=== PATIENT | male | born 1950 | race Caucasian/White ===

== ENCOUNTER 2018-07-16 11:47 | Inpatient (IN) | payer MEDICARE, OTHER ==
[2018-07-16] VITALS (11 sets, daily range): BP systolic 84–108; BP diastolic 48–60
[~2018-07-16] VITALS: Ht 177.8 cm; Wt 111.7 kg
[2018-07-16] MEDS ORDERED: PIP/TAZO PER PHARMACY MC PRN (14:15)
[2018-07-16] MEDS: VANCOMYCIN PER PHARMACY MC PRN (14:58)
--- NOTE | 2018-07-16 16:07 | RAD ---
CT HEAD WO CONTRAST Date: 07/16/2018 2:02 PM Clinical Indication: AMS Comparison: None. Technique: 5 mm axial tomographic images were obtained of the head without contrast. These were viewed on brain and bone windows. Findings: Mild generalized cerebral and cerebellar volume loss. Moderate nonspecific periventricular hypoattenuation, most commonly seen with chronic small vessel ischemic disease. No intra- or extra-axial mass or fluid collection. No acute hemorrhage. The ventricles are normal in size, shape, and morphology. The gonzalez-white matter junction is normal. The basilar cisterns are patent. Fat stranding/skin thickening in the right parietal scalp. The visualized paranasal sinuses are normal. The visualized portions of the orbits and globes are normal. The mastoid air cells are clear. No aggressive osseous lesion or fracture. Impression: 1. No acute intracranial process. 2. Mild cerebral volume loss. Moderate chronic small vessel ischemic disease. 3. Fat stranding/skin thickening in the right parietal scalp. Correlate with physical exam. Findings could relate to small hematoma if patient has recent injury. PQRS Compliance Statement: One or more of the following individualized dose reduction techniques were utilized for this examination: 1. Automated exposure control 2. Adjustment of the mA and/or kV according to patient size 3. Use of iterative reconstruction technique Electronically signed by: Brad Sumner MD (07/16/2018 4:03 PM) [facility]
[2018-07-16] MEDS ORDERED: METO25TA4 PO (16:09)
[2018-07-16] MEDS ORDERED: OMEG10005 PO (16:09)
[2018-07-16] MEDS ORDERED: OMEG1CAP6 PO (16:09)
[2018-07-16] MEDS ORDERED: INSU100I17 SQ (16:09)
[2018-07-16] MEDS ORDERED: DIGO125T PO (16:09)
[2018-07-16] MEDS ORDERED: AMIO200T4 PO (16:09)
[2018-07-16] MEDS ORDERED: APIX5TAB PO (16:09)
[2018-07-16] MEDS ORDERED: ACET650S PO (16:09)
[2018-07-16] MEDS ORDERED: TRAM50TA PO (16:09)
[2018-07-16] MEDS ORDERED: DOXA4TAB3 PO (16:09)
[2018-07-16] MEDS ORDERED: FINA5TAB4 PO (16:09)
[2018-07-16] MEDS ORDERED: NYST100054 PO (16:09)
[2018-07-16] MEDS ORDERED: MULT9LIQ7 PO (16:09)
[2018-07-16] MEDS ORDERED: FERR220S8 PO (16:09)
[2018-07-16] MEDS ORDERED: TRAZ-85 PO (16:09)
[2018-07-16] MEDS ORDERED: LACT1CAP35 PO (16:09)
[2018-07-16] MEDS ORDERED: POLY255P PO (16:09)
[2018-07-16] MEDS ORDERED: MELA3TAB2 PO (16:09)
[2018-07-16] MEDS ORDERED: INSU100I13 SQ (16:09)
[2018-07-16] MEDS ORDERED: ATOR20TA58 PO (16:09)
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
[2018-07-16] MEDS ORDERED: ALBUTEROL SULFATE 2.5 MG/3 ML NEBU. NEB PRN (17:45)
[2018-07-16] MEDS ORDERED: NON FORMULARY ITEM (Melatonin 6 MG) PO SCH (18:15)
[2018-07-16] MEDS ORDERED: ACETAMINOPHEN 650 MG/20.3 ML SOLUTION. PO PRN (18:15)
[2018-07-16] MEDS: PIPERACILLIN/TAZOBACTAM 4.5 GM in IV NORMAL SALINE 100ML 100 ML IV SCH ×2 (18:38→23:25)
[2018-07-16] MEDS: DOXAZOSIN MESYLATE 4 MG TABLET. PO SCH (19:00)
[2018-07-16] MEDS: IPRATRPIUM/ALBUTEROL 0.5/2.5MG 3 ML NEBU. NEB SCH (20:04)
--- NOTE | 2018-07-16 20:54 | PDOC2 ---
CONSULT Date of Consult Date of Consult DATE: 07/16/18 TIME: 20:53 Reason for Consult Reason for Consult: respiratory distress History of Present Illness Reason for Visit: Patient is 69-year-old man who presented from outside facility with the altered mental status with the respiratory distress. Patient is currently being evaluated by pulmonology. Patient was presented from his facility to the emergency room with complaint of breathing problems. Patient is getting CT scan of the chest and brain Current Medications Current Medications Current Medications Vancomycin HCl (Vanco Per Pharmacy) 1 each PRN DAILY PRN MC SEE COMMENTS Last administered on 07/16/18at 14:58; Start 07/16/18 at 14:15 Piperacillin Sod/ Tazobactam Sod (Zosyn Per Pharmacy) 1 each PRN DAILY PRN MC SEE COMMENTS; Start 07/16/18 at 14:15 Piperacillin Sod/ Tazobactam Sod 4.5 gm/Sodium Chloride 100 ml @ 200 mls/hr Q6HRS IV Last administered on 07/16/18at 18:38; Start 07/16/18 at 18:00 Vancomycin HCl 2 gm/Sodium Chloride 500 ml @ 250 mls/hr Q18H IV ; Start at 06:00 Vancomycin HCl (Vancomycin Trough Level) 1 each 1X ONCE MC ; Start 07/18/18 at 23:30; Stop 07/18/18 at 23:31 Albuterol/ Ipratropium (Duoneb) 3 ml RTQID NEB Last administered on 07/16/18at 20:04; Start 07/16/18 at 20:00 Albuterol Sulfate (Ventolin Neb Soln) 2.5 mg PRN Q4HRS PRN NEB SHORTNESS OF BREATH; Start 07/16/18 at 17:45 Acetaminophen (Tylenol) 650 mg PRN Q6HRS PRN PO MILD PAIN / TEMP; Start at 18:15 Amiodarone HCl (Cordarone) 400 mg BID PO ; Start 07/16/18 at 21:00 Apixaban (Eliquis) 5 mg BID PO ; Start 07/16/18 at 21:00 Atorvastatin Calcium (Lipitor) 20 mg HS PO ; Start 07/16/18 at 21:00 Doxazosin Mesylate (Cardura) 4 mg DAILY PO ; Start 07/16/18 at 19:00 Finasteride (Proscar) 5 mg QHS PO ; Start 07/16/18 at 21:00 Insulin Glargine (Lantus) 40 units QHS SQ ; Start 07/16/18 at 21:00 Metoprolol Tartrate (Lopressor) 25 mg BID PO ; Start 07/16/18 at 21:00 Polyethylene Glycol (miraLAX PACKET) 34 gm BID PO ; Start 07/16/18 at 21:00 Trazodone HCl (Desyrel) 50 mg HS PO ; Start 07/16/18 at 21:00 Ferrous Sulfate (Iron Oral Solution) 300 mg DAILY PO ; Start 07/16/18 at 19:00 Insulin Human Lispro (HumaLOG) 20 units TID@0800,1400,2000 SQ ; Start 07/16/18 at 20:00 Lactobacillus Rhamnosus (Culturelle) 1 cap BID PO ; Start 07/16/18 at 21:00 Non-Formulary Medication (Melatonin ) 6 mg PRN QHS PO ; Start 07/16/18 at 18: 15; Status UNV Multivitamins (Thera-Plus Oral Liquid) 5 ml DAILY PO ; Start 07/16/18 at 19:00 Nystatin (Nystatin Oral Susp) 5 ml [id number] SWSW ; Start 07/16/18 at 21:00 Active Scripts Active Reported Digoxin 125 Mcg Tablet 125 Mcg PO QHS Ultra Nancy Plus Capsule (Lactobac/Bifidobac/Glob Pr Con) 1 Each Capsule 1 Each PO BID Eliquis (Apixaban) 5 Mg Tablet 5 Mg PO BID Atorvastatin Calcium 20 Mg Tablet 20 Mg PO HS Tramadol Hcl 50 Mg Tablet 50 Mg PO Q6HRS PRN Lugoff-3 (Lugoff-3 Fatty Acids) 1,000 Mg Capsule 2,000 Mg PO Amiodarone Hcl 200 Mg Tablet 400 Mg PO BID Acetaminophen Oral Liquid (Acetaminophen) 650 Mg/20.3 Ml Solution 650 Mg PO PRN Q6HRS Ferrous Sulfate 220 Mg/5 Ml Elixir 5 Ml PO DAILY Melatonin 3 Mg Tablet 6 Mg PO PRN QHS Metoprolol Tartrate 25 Mg Tablet 25 Mg PO BID Doxazosin Mesylate 4 Mg Tablet 4 Mg PO DAILY Novolog Flexpen (Insulin Aspart) 100 Unit/1 Ml Insuln.pen 20 Unit SQ TID@0800, 1400,2000 Lantus Solostar (Insulin Glargine,Hum.rec.anlog) 100 Unit/1 Ml Insuln.pen 40 Unit SQ QHS Nystatin 100,000 Unit/1 Ml Oral.susp 5 Ml PO QID Finasteride 5 Mg Tablet 5 Mg PO QHS Trazodone Hcl 50 Mg Tablet 50 Mg PO HS Polyethylene Glycol 3350 255 Gm Powder 34 Gm PO BID Certa Jordan Liquid (Multivits W-Min/Ferrous Gluc) 9 Mg/15 Ml Liquid 9 Mg PO DAILY Allergies Allergies: Coded Allergies: metformin (Verified Allergy, Intermediate, 07/16/18) pioglitazone (Verified Allergy, Intermediate, 07/16/18) Physical Exam Physical Exam PHYSICAL EXAMINATION: General: Intubated. HEENT: Normal cephalic and non traumatic. Neck: No lymphadenopathy. No resistance. Cardiac: S1, S2, regular rate and rhythm. Pulmonary: On vent. Abdomen: Bowel sounds are normal. NEUROLOGICAL EXAMINATION: On vent. Unresponsiveness. Pupils 1 mm, decreased reaction to light stimuli. EOMI not elicited. CN: No acute findings. Neck: No resistance Muscle Tone: decreased. Muscle Strength: minimal movements noted to stimuli DTR: 0-1 Sensory: Minimal response to pain stimuli. Plantar Reflex: mute Cerebellar Signs: Not able to access. Gait: Not able. Vitals VITALS Vital Signs Date Time Temp Pulse Resp B/P (MAP) Pulse Ox O2 Delivery O2 Flow Rate FiO2 07/16/18 20:05 95 BiPAP/CPAP 07/16/18 20:00 98.4 64 24 102/60 (74) 98.4 Assessment/Plan Assessment/Plan Patient is 69-year-old man who presented from outside facility with the altered mental status with the respiratory distress. Patient is currently being evaluated by pulmonology. Patient was presented from his facility to the emergency room with complaint of breathing problems. Patient is getting CT scan of the chest. Patient had a CT scan brain showing mild cerebral volume loss with no acute intracranial process. Changes noted for small vessel ischemic disease. Further images MRI of brain can be done to further evaluate for any acute intracranial etiology when medically stable. Continue medical management. Obtain previous records VASQUEZ SMITH MD Jul 16, 2018 20:54
[2018-07-16] MEDS: METOPROLOL TART IMMED RELEASE 25 MG TABLET. PO SCH (21:00)
--- NOTE | 2018-07-16 21:09 | RAD ---
AP portable chest 07/16/2018. Reason for exam: PICC line placement. A PICC line enters the right upper extremity. Its tip extends to the mid to lower SVC level. There are bilateral infiltrates, right worse than left. No large effusion is seen. Heart size is normal. IMPRESSION: Placement of PICC line as described above. Electronically signed by: J Carlos Wilson Jr., MD (07/16/2018 9:05 PM) [facility]
[2018-07-16] MEDS: FERROUS SULFATE ORAL 300 MG/5 ML SOLUTION. PO SCH (21:23)
[2018-07-16] MEDS: NYSTATIN 100,000 UNITS/ML 5 ML ORAL.SUSP. SWSW SCH (21:23)
[2018-07-16] MEDS: MULTIVITAMINS,THERAPEUTIC 5 ML ORAL LIQUID. PO SCH (21:23)
[2018-07-16] MEDS: POLYETHYLENE GLYCOL 3350 17 GM PACKET. PO SCH (21:24)
[2018-07-16] MEDS: AMIODARONE HCL 200 MG TABLET. PO SCH (21:24)
[2018-07-16] MEDS: LACTOBACILLUS RHAMNOSUS GG 1 CAPSULE. PO SCH (21:24)
[2018-07-16] MEDS: traZODone 50 MG TABLET. PO SCH (21:24)
[2018-07-16] MEDS: APIXABAN 5 MG TABLET. PO SCH (21:24)
[2018-07-16] MEDS: ATORVASTATIN CALCIUM 20 MG TABLET PO SCH (21:24)
[2018-07-16] MEDS: FINASTERIDE 5 MG TABLET. PO SCH (21:25)
[2018-07-16] MEDS: INSULIN GLARGINE 300 UNITS/3 ML INSULN.PEN. SQ SCH (21:26)
[2018-07-16] MEDS: INSULIN LISPRO 300 UNITS/3 ML INSULN.PEN. SQ SCH (21:27)
[2018-07-17] VITALS (24 sets, daily range): BP systolic 79–114; BP diastolic 36–58
[2018-07-17 03:11] LABS: BASO % 0 % (0-3); EOS % 0 % (0-3); HEMATOCRIT 24.3 % (39.0-53.0); LYMPH # 0.5 x10^3/uL (1.0-4.8); LYMPH % 7 % (24-48); MEAN CORPUSCULAR HEMOGLOBIN 28 pg (25-35); MEAN CORPUSCULAR HGB CONC 33 g/dL (31-37); MEAN CORPUSCULAR VOLUME 85 fL (79-100); MONO # 0.4 x10^3/uL (0.0-1.1); MONO % 5 % (0-9); NEUT # 6.8 x10^3uL (1.8-7.7); NEUT % 89 % (31-73); PLATELET COUNT 108 x10^3/uL (140-400); RED BLOOD COUNT 2.87 x10^6/uL (4.30-5.70); RED CELL DISTRIBUTION WIDTH 21.8 % (11.5-14.5); WHITE BLOOD COUNT 7.7 x10^3/uL (4.0-11.0)
[2018-07-17 03:28] LABS: ALBUMIN 2.2 g/dL (3.4-5.0); ALBUMIN/GLOBULIN RATIO 0.7 (1.0-1.7); CALCIUM 8.2 mg/dL (8.5-10.1); CREATININE 1.3 mg/dL (0.7-1.3); GFR 55.1; POTASSIUM 5.1 mmol/L (3.5-5.1); TOTAL BILIRUBIN 0.5 mg/dL (0.2-1.0); TOTAL PROTEIN 5.5 g/dL (6.4-8.2)
[2018-07-17 03:48] LABS: % BANDS 2 % (0-9); % LYMPHS 5 % (24-48); % MONOS 3 % (0-10); % SEGS 90 % (35-66)
[2018-07-17 03:49] LABS: ANISOCYTOSIS MOD; PLT ESTIMATE DECREASED (ADEQUATE); POLYCHROMASIA SLIGHT; TOXIC GRANULATION MOD
[2018-07-17] MEDS: PIPERACILLIN/TAZOBACTAM 4.5 GM in IV NORMAL SALINE 100ML 100 ML IV SCH ×4 (05:49→23:26)
[2018-07-17] MEDS: VANCOMYCIN 2 GM in IV NORMAL SALINE 500ML BAG 500 ML IV SCH (05:50)
[2018-07-17] MEDS: IPRATRPIUM/ALBUTEROL 0.5/2.5MG 3 ML NEBU. NEB SCH ×4 (07:19→19:33)
[2018-07-17 07:35] LABS: BASE EXCESS ABG -1 mmol/L (-3-3); HCO3 ABG 24 mmol/L (21-28); PCO2 ABG 42 mmHg (35-46); PO2 ABG 71 mmHg (65-108); SAT O2 ABG 94 % (92-99)
[2018-07-17 07:36] LABS: FIO2 ABG 40
--- NOTE | 2018-07-17 08:26 | PDOC ---
Infectious Disease Note Vital Sign Vital Signs Vital Signs Date Time Temp Pulse Resp B/P (MAP) Pulse Ox O2 Delivery O2 Flow Rate FiO2 07/17/18 08:00 Bi-pap 07/17/18 08:00 97.9 64 18 79/36 (50) 100 97.9 Labs Lab Laboratory Tests Test 07/16/18 21:22 07/17/18 02:50 07/17/18 07:20 07/17/18 07:39 Glucose (Fingerstick) 188 mg/dL (70-99) 262 mg/dL (70-99) White Blood Count 7.7 x10^3/uL (4.0-11.0) Red Blood Count 2.87 x10^6/uL (4.30-5.70) Hemoglobin 8.0 g/dL (13.0-17.5) Hematocrit 24.3 % (39.0-53.0) Mean Corpuscular Volume 85 fL (79-100) Mean Corpuscular Hemoglobin 28 pg (25-35) Mean Corpuscular Hemoglobin Concent 33 g/dL (31-37) Red Cell Distribution Width 21.8 % (11.5-14.5) Platelet Count 108 x10^3/uL (140-400) Neutrophils (%) (Auto) 89 % (31-73) Lymphocytes (%) (Auto) 7 % (24-48) Monocytes (%) (Auto) 5 % (0-9) Eosinophils (%) (Auto) 0 % (0-3) Basophils (%) (Auto) 0 % (0-3) Neutrophils # (Auto) 6.8 x10^3uL (1.8-7.7) Lymphocytes # (Auto) 0.5 x10^3/uL (1.0-4.8) Monocytes # (Auto) 0.4 x10^3/uL (0.0-1.1) Eosinophils # (Auto) 0.0 x10^3/uL (0.0-0.7) Basophils # (Auto) 0.0 x10^3/uL (0.0-0.2) Segmented Neutrophils % 90 % (35-66) Band Neutrophils % 2 % (0-9) Lymphocytes % 5 % (24-48) Monocytes % 3 % (0-10) Toxic Granulation Mod Platelet Estimate Decreased (ADEQUATE) Polychromasia Slight Basophilic Stippling Present Anisocytosis Mod Sodium Level 138 mmol/L (136-145) Potassium Level 5.1 mmol/L (3.5-5.1) Chloride Level 103 mmol/L (98-107) Carbon Dioxide Level 26 mmol/L (21-32) Anion Gap 9 (6-14) Blood Urea Nitrogen 46 mg/dL (8-26) Creatinine 1.3 mg/dL (0.7-1.3) Estimated GFR (Cockcroft-Gault) 55.1 BUN/Creatinine Ratio 35 (6-20) Glucose Level 309 mg/dL (70-99) Calcium Level 8.2 mg/dL (8.5-10.1) Total Bilirubin 0.5 mg/dL (0.2-1.0) Aspartate Amino Transf (AST/SGOT) 13 U/L (15-37) Alanine Aminotransferase (ALT/SGPT) 22 U/L (16-63) Alkaline Phosphatase 111 U/L (46-116) Total Protein 5.5 g/dL (6.4-8.2) Albumin 2.2 g/dL (3.4-5.0) Albumin/Globulin Ratio 0.7 (1.0-1.7) O2 Saturation 94 % (92-99) Arterial Blood pH 7.38 (7.35-7.45) Arterial Blood pCO2 at Patient Temp 42 mmHg (35-46) Arterial Blood pO2 at Patient Temp 71 mmHg (65-108) Arterial Blood HCO3 24 mmol/L (21-28) Arterial Blood Base Excess -1 mmol/L (-3-3) FiO2 40 Objective Assessment pt seen, consult dictated Plan Plan of Care see orders BRIAN العراقي MD Jul 17, 2018 08:26
[2018-07-17] MEDS: POLYETHYLENE GLYCOL 3350 17 GM PACKET. PO SCH ×2 (09:00→20:32)
[2018-07-17] MEDS: AMIODARONE HCL 200 MG TABLET. PO SCH ×2 (09:00→20:32)
[2018-07-17] MEDS: METOPROLOL TART IMMED RELEASE 25 MG TABLET. PO SCH ×2 (09:00→20:21)
[2018-07-17] MEDS: DOXAZOSIN MESYLATE 4 MG TABLET. PO SCH (09:00)
[2018-07-17] MEDS ORDERED: ANTI-COAG MONITOR BY PHARMACY. MC PRN (09:15)
[2018-07-17] MEDS ORDERED: NOREPINEPHRIN 8MG/250ML PREMIX 250 ML IV PRN (09:45)
[2018-07-17] MEDS: MULTIVITAMINS,THERAPEUTIC 5 ML ORAL LIQUID. PO SCH (10:07)
[2018-07-17] MEDS: FERROUS SULFATE ORAL 300 MG/5 ML SOLUTION. PO SCH ×2 (10:07→20:31)
[2018-07-17] MEDS: NYSTATIN 100,000 UNITS/ML 5 ML ORAL.SUSP. SWSW SCH ×4 (10:07→20:32)
[2018-07-17] MEDS: APIXABAN 5 MG TABLET. PO SCH ×2 (10:07→20:32)
[2018-07-17] MEDS: LACTOBACILLUS RHAMNOSUS GG 1 CAPSULE. PO SCH ×2 (10:07→20:32)
[2018-07-17] MEDS: INSULIN LISPRO 300 UNITS/3 ML INSULN.PEN. SQ SCH ×3 (10:08→19:46)
[2018-07-17] MEDS: VANCOMYCIN PER PHARMACY MC PRN ×2 (10:40→10:50)
[2018-07-17] MEDS ORDERED: ALBUMIN HUMAN 5% 500 ML IV ONE (10:45)
--- NOTE | 2018-07-17 10:45 | HP ---
ADMIT DATE: 07/16/2018 HISTORY OF PRESENT ILLNESS: The patient is a 67-year-old male patient, a resident at [facility] who apparently was at [facility] and was treated for an abscess on the anterior aspect of the right thigh, was incised and drained. He was back at [facility] only for a few days and was noted yesterday to be unresponsive. He was evaluated at the Emergency Room of [facility], and his blood gases showed that he has acute hypoxic hypercapnic respiratory failure, and initially, the ER physician planned to intubate him, and therefore, I recommended that he should be transferred to [facility] as ICU to consult the apartment maintenance supervisor for ventilator management. It transpired that the patient has also multiple other wounds in the back of his head. He was started on BiPAP machine, and apparently, his blood gases improved prior to transferring him to [facility]. The patient has left middle cerebral artery territory infarct with right-sided hemiplegia. He has aphasia, dysphagia and right-sided hemiplegia. Further evaluation in the Emergency Room showed that he has leukocytosis. Basically, the patient was admitted to [facility] with acute hypoxic hypercapnic respiratory failure, and we did actually consult the apartment maintenance supervisor as well as infectious disease specialist and the wound care team for further evaluation and treatment. His chest x-ray and CT scan confirmed that he has bilateral lung infiltrate. We did start him on IV vancomycin and Zosyn. PAST MEDICAL HISTORY: Significant for atrial fibrillation, has had previous episode of methicillin-resistant Staphylococcus aureus infection. Acute systolic congestive heart failure, acute respiratory failure. Cutaneous abscess of the right thigh, status post incision and drainage. Acute kidney failure. Anemia of chronic disease. He has type 2 diabetes with hyperglycemia. He has also morbid obesity, hyperlipidemia, chronic hyponatremia, hypertension, muscle weakness, difficulty walking. He has left middle cerebral artery territory infarct with right-sided hemiplegia, aphasia and dysphagia. PAST SURGICAL HISTORY: Significant for percutaneous endoscopic gastrostomy tube placement as well as incision and drainage of the abscess in his right thigh. Unfortunately, there is no family member here available today when I saw him. The patient is aphasic and does not give any useful information. ALLERGIES: HE IS ALLERGIC TO METFORMIN AND PIOGLITAZONE. MEDICATIONS: He was on these medications while at [facility]. He is on nystatin swish and spit 4 times a day, ferrous sulfate 220 mg per 5 mL, he takes 5 mL daily. Apixaban 5 mg twice a day. Amiodarone 200 mg twice a day, he takes 400 mg p.o. b.i.d. Digoxin 125 mcg p.o. at bedtime, atorvastatin calcium 20 mg daily, omega-3 fatty acid 2000 mg p.o. daily, doxazosin mesylate 4 mg daily, metoprolol tartrate 25 mg p.o. b.i.d., tramadol 50 mg p.o. q.6 hourly, Tylenol 650 mg every 4 hours as needed, trazodone 50 mg at bedtime, polyethylene glycol 34 grams p.o. b.i.d., lactobacillus acidophilus 1 capsule twice a day. He is on NovoLog insulin 20 units 3 times a day and Lantus insulin 40 units at bedtime. He is on multivitamin with mineral one tablet once a day, finasteride 5 mg at bedtime, melatonin 6 mg at bedtime. FAMILY HISTORY: Unobtainable. SOCIAL HISTORY: He is a resident at [facility]. I do not have any further information about him. REVIEW OF SYSTEMS: Unobtainable. PHYSICAL EXAMINATION: GENERAL: On arrival to [facility] from [place] [facility], he looked pale, but no jaundice, cyanosis or thyromegaly. No jugular venous distension. No lower limb edema. VITAL SIGNS: His heart rate was 68, blood pressure was 98/57, temperature was 98, respiratory rate was 30 and oxygen saturation was 100% on BiPAP machine. HEAD, EYES, EARS, NOSE AND THROAT: Showed normocephalic, atraumatic. NECK: Supple. HEART: Showed normal first and second heart sounds. No gallop, rub or murmur. CHEST: Clear to auscultation. No crepitation or rhonchi. ABDOMEN: Distended, soft with gastrostomy tube in place. There is no guarding or rigidity. No organomegaly. All hernial orifices intact. Bowel sounds normal. NEUROLOGIC: The patient was unresponsive. He has clearly flaccid right upper and right lower extremity hemiplegia. LABORATORY DATA: At [facility] Emergency Room showed that his white cell count was 15,000, hemoglobin was 10, hematocrit 32, MCV 86 and platelet count of 153,000. His prothrombin time was 11.3, INR 1.1, aPTT was 27. His D-dimer was 1.47. His serum sodium was 133, potassium 5.8, chloride 98, bicarbonate 29, anion gap of 6, BUN 43, creatinine 1.3, estimated GFR was 55 mL per minute. His glucose was 339, lactic acid was 2. Calcium was 8.4, magnesium 2.7. Total bilirubin, AST, ALT, alkaline phosphatase were normal. His CK was 31, troponin 0.030, beta natriuretic peptide was 5469. Total protein was 6.6, albumin was 2.7. Lipase was 183. Digoxin was 2.1. His EKG showed that he was in atrial fibrillation with a heart rate of 76, low voltage QRS, right bundle-branch block, right ventricular hypertrophy, however, no acute ST-T changes. His chest x-ray showed low right lung volume, right mid to lower lung zone and left lower lung zone, heterogenous airspace opacities consolidation, pulmonary vascular indistinction, moderate right-sided pleural effusion, possible trace left pleural effusion, borderline cardiomegaly. The great vessels of the thorax are normal. No acute osseous abnormality. Numerous small metallic foreign bodies overlying the right shoulder. ASSESSMENT AND PLAN: The patient was basically admitted with [id number] hypoxic hypercapnic respiratory failure, probably bilateral lower lobe infiltrate, sepsis, leukocytosis. He was started on BiPAP, actually he was DNR. We started him on IV antibiotic in the form of Zosyn and vancomycin as per pharmacy recommendation. Continue his tube feeds and his insulin. I did consult the apartment maintenance supervisor as well as the Infectious Disease and Wound Care and will follow him closely. We did order blood cultures and will obviously adjust his antibiotic accordingly. We did order a CT scan of the head without contrast as well as CT scan of the chest without contrast. NICOL LALA MD DR: HARJINDER/roni JOB#: [id number] / [id number]
--- NOTE | 2018-07-17 11:25 | CONS ---
DATE OF CONSULTATION: ATTENDING PHYSICIAN: Dr. Baxter. REASON FOR CONSULTATION: Respiratory failure. HISTORY OF PRESENT ILLNESS: The patient is a 67-year-old male who presented to [facility] with altered mental status. The patient has been coughing, but is unable to bring up any phlegm. He had some shortness of breath as well. The patient was evaluated at [place], and arterial blood gases were reviewed at the time of transfer. He was placed on BiPAP and transferred over here. He was noted to have abnormal chest x-ray, which showed marked volume loss in the right lung consistent with pneumonia. He underwent CT chest without contrast, which was reviewed by me. He had bilateral lower lobe consolidation, right greater than left. He has evidence of pneumonia. The patient has small pleural effusions as well. He has some mucus in the trachea and then some reactive mediastinal adenopathy. He was seen by Infectious Disease and antibiotics, vancomycin and Zosyn were started. The patient also is on chronic anticoagulation with Eliquis. He has prior history of stroke. He has a PEG tube in place. His ABG showed a pH of 7.38, pCO2 of 42 and a pO2 of 71 on 40% FiO2. After overnight BiPAP, he has been taken off and now on a cannula. His blood pressure in the 80s, he did receive 1 liter of IV fluids. PAST MEDICAL HISTORY: History of CVA, history of dysphagia, history of PEG tube. History of large deep right thigh wound. No significant history of tobacco use. PAST SURGICAL HISTORY: PEG tube. ALLERGIES: METFORMIN AND PIOGLITAZONE. MEDICATIONS: Reviewed as listed in the MRAD. SOCIAL HISTORY: Denies significant tobacco history. REVIEW OF SYSTEMS: Twelve-point system obtained. Pertinent positives discussed in my history of present illness, otherwise noncontributory. All systems that were negative were reviewed as well. PHYSICAL EXAMINATION: GENERAL: He is weak, but arousable and follows commands. VITAL SIGNS: Blood pressure latest is 85 systolic, afebrile. HEENT: Sclerae nonicteric. NECK: Supple. LUNGS: With coarse breath sounds anteriorly. CARDIOVASCULAR: Regular rate. ABDOMEN: Soft. PEG tube is in place. EXTREMITIES: With bilateral pitting edema. His wound is deep right thigh wound. LABORATORY DATA: Reviewed. ABGs are discussed in my history of present illness. BUN 46, creatinine 1.3. Albumin is only 2.2. White cell count 7.7, hemoglobin 8.0 and platelets are 108. IMPRESSION: 1. Acute hypoxic respiratory failure secondary to extensive pneumonia. 2. Abnormal CT chest with bilateral consolidation consistent with pneumonia and a small pleural effusion, which probably related to low oncotic pressure. He also had mild mediastinal adenopathy which is likely reactive. 3. Anemia. 4. Hypotension secondary to early sepsis versus volume contraction. Would benefit from fluid overload. Clinically, appears to be dry. 5. No significant history of tobacco use. 6. History of prior cerebrovascular accident with dysphagia and chronic PEG tube placement. 7. Large right thigh wounds. RECOMMENDATIONS: 1. Continue with present nasal cannula. 2. P.r.n. oral suction. 3. Broad spectrum antibiotics. 4. DuoNeb. 5. Anticoagulation per PCP. 6. Follow chest x-ray and see the response to antibiotics. 7. Obtain echocardiogram to assess for LV dysfunction. 8. Improve nutritional status. 9. Try albumin/colloids to see an improvement in blood pressure. 10. May use vasopressor. 11. DVT prophylaxis. 12. Stress ulcer prophylaxis. 13. Discussed with RN and RT. We will follow along with you. Critical care time 39 minutes. VASQUEZ PEREZ MD DR: RASHEED/roni JOB#: [id number] / [id number] [facility]
--- NOTE | 2018-07-17 11:38 | CONS ---
DATE OF CONSULTATION: 07/17/2018 REQUESTING PHYSICIAN: Dr. Baxter. REASON FOR CONSULTATION: Possible sepsis. HISTORY OF PRESENT ILLNESS: This is a 67-year-old gentleman who is a fdc resident with advanced dementia who was transferred from [facility] for change in mental status. The patient is not able to provide any information as the patient is requiring some BiPAP support. The patient is DNR/DNI. A low blood pressure was noted as well as bilateral pulmonary infiltrate noted on a CT chest. The patient has very large wound on the right thigh, which that he is not able to provide any information as he states it is there for a long time and the debridement of cleaning out done recently. The patient also has a sacral decubitus as well as decubitus pressure changes on the scalp. The patient is awake. He is able to communicate very slightly on BiPAP. No nausea, vomiting, diarrhea noted. There is no pain that he says he has other than when he is turned and his breathing has been labored, requiring BiPAP support. PAST MEDICAL HISTORY: Positive for diabetes mellitus, hypertension, dementia, large wound on the right thigh, which we do not know how, immobility and total care in the fdc. SOCIAL HISTORY: Unable to obtain. The patient is a fdc resident with total care. ALLERGIES: LISTED ALLERGIC TO METFORMIN AND PIOGLITAZONE. CURRENT MEDICATIONS: Reviewed. The patient is started on vancomycin and Zosyn. REVIEW OF SYSTEMS: As per HPI. All other systems reviewed through the patient's nurse, the patient is not able to provide much information as I documented in HPI. PHYSICAL EXAMINATION: GENERAL: Awake gentleman who is on a BiPAP, in mild respiratory distress. VITAL SIGNS: Temperature 97.9, pulse 64, respirations 18, blood pressure 79/36. HEENT: Pupils are round, reacting. No conjunctival lesion. No oral lesions. NECK: Supple, no JVD, no lymphadenopathy. LUNGS: Decreased breath sounds bilaterally. CARDIOVASCULAR: S1, S2 regular. No gallop or murmur. ABDOMEN: Soft, nontender, no organomegaly. EXTREMITIES: No edema or cyanosis. He has a very large defect on the right anterior thigh and the 90%-95% of the wound looks very clean and healthy red granulation tissue, only about 5%-10%, there is necrotic tissue. The patient has a sacrococcygeal decubitus with necrotic tissue and there are pressure changes on the scalp. Rest of skin exam is unremarkable. The patient does move all the extremities, although neurologically, he has advanced dementia and able to communicate in a very limited fashion. LABORATORY DATA: White count is normal, hemoglobin is 8, platelets are 108,000, BUN and creatinine [address] of the head unremarkable. CT of the chest showed bilateral infiltrate. IMPRESSION: 1. Encephalopathy, unclear what the baseline is right now. 2. Bilateral pulmonary infiltrate pneumonia, healthcare facility associated pneumonia versus congestive heart failure versus combination of both. 3. Advanced dementia. 4. Very large right anterior thigh wound. 5. Sacrococcygeal wound, necrotic. 6. Pressure changes on the posterior scalp. PLAN: Recommend continue vancomycin and Zosyn for the time being, supportive care. We will obtain more information either more records from our discussing with Dr. Baxter who is the attending. The patient is DNR/DNI. We will continue to follow. Thank you very much, Dr. Baxter for giving me opportunity to participate in this patient's care. BRIAN العراقي MD DR: NADIA/roni JOB#: [id number] / [id number]
--- NOTE | 2018-07-17 12:23 | PDOC2 ---
SVETLANA PERAZA CAN SEALER 07/17/18 1223: CARDIAC CONSULT DATE OF CONSULT Date of Consult DATE: 07/17/18 TIME: 12:20 REASON FOR CONSULT Reason for Consult: Possible CHF Needing Echo REFERRING PHYSICIAN Referring Physician: Dr. Draper SOURCE Source: Chart review HISTORY OF PRESENT ILLNESS HISTORY OF PRESENT ILLNESS This is a 67 yo male who initially presented to [facility] nursing facility secondary to shortness of breath and altered mental status. Patient drowsy and unable to provide HPI. A. fib, CVA and paraplegia and PEG tube placement, recent right MRSA infection and abscess drainage and hospitalization at [facility] for several weeks PAST MEDICAL HISTORY Cardiovascular: AFIB, CHF, HTN, Hyperlipidemia Pulmonary: COPD CENTRAL NERVOUS SYSTEM: CVA, Dementia, Other (dysphagia) Heme/Onc: No pertinent hx Hepatobiliary: No pertinent hx Psych: No pertinent hx Musculoskeletal: Osteoarthritis Rheumatologic: No pertinent hx Infectious disease: No pertinent hx, Other (MRSA) ENT: No pertinent hx Renal/: Chronic renal failure, Benign prostatic enlarg. Endocrine: Diabetes PAST SURGICAL HISTORY Past Surgical History: Appendectomy, Cholecystectomy, Other (PEG, right shoulder surgery) FAMILY HISTORY Family History: Family History Unknown SOCIAL HISTORY Lives: Half-Way CURRENT MEDICATIONS CURRENT MEDICATIONS Current Medications Medications (Trade) Dose Ordered Sig/Jose Route PRN Reason Start Time Stop Time Status Last Admin Dose Admin Vancomycin HCl (Vanco Per Pharmacy) 1 each PRN DAILY PRN MC SEE COMMENTS 07/16/18 14:15 07/17/18 10:50 Piperacillin Sod/ Tazobactam Sod 4.5 gm/Sodium Chloride 100 ml @ 200 mls/hr Q6HRS IV 07/16/18 18:00 07/17/18 11:24 Vancomycin HCl 2 gm/Sodium Chloride 500 ml @ 250 mls/hr Q18H IV 07/17/18 06:00 07/17/18 05:50 Albuterol/ Ipratropium (Duoneb) 3 ml RTQID NEB 07/16/18 20:00 07/17/18 11:40 Amiodarone HCl (Cordarone) 400 mg BID PO 07/16/18 21:00 07/16/18 21:24 Apixaban (Eliquis) 5 mg BID PO 07/16/18 21:00 07/17/18 10:07 Atorvastatin Calcium (Lipitor) 20 mg HS PO 07/16/18 21:00 10/21/18 21:24 Finasteride (Proscar) 5 mg QHS PO 07/16/18 21:00 07/16/18 21:25 Insulin Glargine (Lantus) 40 units QHS SQ 07/16/18 21:00 07/16/18 21:26 Polyethylene Glycol (miraLAX PACKET) 34 gm BID PO 07/16/18 21:00 07/16/18 21:24 Trazodone HCl (Desyrel) 50 mg HS PO 07/16/18 21:00 07/16/18 21:24 Ferrous Sulfate (Iron Oral Solution) 300 mg DAILY PO 07/16/18 19:00 07/17/18 10:07 Insulin Human Lispro (HumaLOG) 20 units TID@0800,1400,2000 SQ 07/16/18 20:00 07/17/18 10:08 Lactobacillus Rhamnosus (Culturelle) 1 cap BID PO 07/16/18 21:00 07/17/18 10:07 Multivitamins (Thera-Plus Oral Liquid) 5 ml DAILY PO 07/16/18 19:00 07/17/18 10:07 Nystatin (Nystatin Oral Susp) 5 ml [id number] 07/16/18 21:00 07/17/18 10:07 Info (Anti-Coagulation Monitoring By Pharmacy) 1 each PRN DAILY PRN MC SEE COMMENTS 07/17/18 09:15 07/17/18 10:51 Albumin Human 500 ml @ 125 mls/hr 1X ONCE IV 07/17/18 10:45 07/17/18 14:44 07/17/18 11:22 ALLERGIES ALLERGIES: Coded Allergies: metformin (Verified Allergy, Intermediate, 07/16/18) pioglitazone (Verified Allergy, Intermediate, 07/16/18) ROS Review of System unobtainable. PHYSICAL EXAM General: No acute distress, Other (drowsy. ) HEENT: Atraumatic, Mucous membr. moist/pink Lungs: Other (coarse throughout) Heart: Other (IRRR. tele AFIB/flutter with controlled rate, 2/6 systolic murmur ) Abdomen: Soft Extremities: No edema Skin: Other (multiple wounds) Neuro: Sensation intact Psych/Mental Status: Other (unable to assess) MUSCULOSKELETAL: Osteoarthritic changes both hands VITALS VITALS Vital Signs Date Time Temp Pulse Resp B/P (MAP) Pulse Ox O2 Delivery O2 Flow Rate FiO2 07/17/18 11:41 98 Nasal Cannula 3.0 07/17/18 11:00 61 18 79/48 (58) 07/17/18 08:00 97.9 97.9 LABS Lab: Laboratory Tests Test 07/16/18 21:22 07/17/18 02:50 07/17/18 07:20 07/17/18 07:39 Glucose (Fingerstick) 188 mg/dL (70-99) 262 mg/dL (70-99) White Blood Count 7.7 x10^3/uL (4.0-11.0) Red Blood Count 2.87 x10^6/uL (4.30-5.70) Hemoglobin 8.0 g/dL (13.0-17.5) Hematocrit 24.3 % (39.0-53.0) Mean Corpuscular Volume 85 fL (79-100) Mean Corpuscular Hemoglobin 28 pg (25-35) Mean Corpuscular Hemoglobin Concent 33 g/dL (31-37) Red Cell Distribution Width 21.8 % (11.5-14.5) Platelet Count 108 x10^3/uL (140-400) Neutrophils (%) (Auto) 89 % (31-73) Lymphocytes (%) (Auto) 7 % (24-48) Monocytes (%) (Auto) 5 % (0-9) Eosinophils (%) (Auto) 0 % (0-3) Basophils (%) (Auto) 0 % (0-3) Neutrophils # (Auto) 6.8 x10^3uL (1.8-7.7) Lymphocytes # (Auto) 0.5 x10^3/uL (1.0-4.8) Monocytes # (Auto) 0.4 x10^3/uL (0.0-1.1) Eosinophils # (Auto) 0.0 x10^3/uL (0.0-0.7) Basophils # (Auto) 0.0 x10^3/uL (0.0-0.2) Segmented Neutrophils % 90 % (35-66) Band Neutrophils % 2 % (0-9) Lymphocytes % 5 % (24-48) Monocytes % 3 % (0-10) Toxic Granulation Mod Platelet Estimate Decreased (ADEQUATE) Polychromasia Slight Basophilic Stippling Present Anisocytosis Mod Sodium Level 138 mmol/L (136-145) Potassium Level 5.1 mmol/L (3.5-5.1) Chloride Level 103 mmol/L (98-107) Carbon Dioxide Level 26 mmol/L (21-32) Anion Gap 9 (6-14) Blood Urea Nitrogen 46 mg/dL (8-26) Creatinine 1.3 mg/dL (0.7-1.3) Estimated GFR (Cockcroft-Gault) 55.1 BUN/Creatinine Ratio 35 (6-20) Glucose Level 309 mg/dL (70-99) Calcium Level 8.2 mg/dL (8.5-10.1) Total Bilirubin 0.5 mg/dL (0.2-1.0) Aspartate Amino Transf (AST/SGOT) 13 U/L (15-37) Alanine Aminotransferase (ALT/SGPT) 22 U/L (16-63) Alkaline Phosphatase 111 U/L (46-116) AR-Uzq-E-Type Natriuretic Peptide 4614 pg/mL (0-124) Total Protein 5.5 g/dL (6.4-8.2) Albumin 2.2 g/dL (3.4-5.0) Albumin/Globulin Ratio 0.7 (1.0-1.7) O2 Saturation 94 % (92-99) Arterial Blood pH 7.38 (7.35-7.45) Arterial Blood pCO2 at Patient Temp 42 mmHg (35-46) Arterial Blood pO2 at Patient Temp 71 mmHg (65-108) Arterial Blood HCO3 24 mmol/L (21-28) Arterial Blood Base Excess -1 mmol/L (-3-3) FiO2 40 ASSESSMENT/PLAN ASSESSMENT/PLAN 1. Acute respiratory failure secondary to PNA/ pleural effusion. Ongoing lug optimization/antibiotics as per pulm and ID 2. Chronic diastolic HF; relatively compensated. 3. Persistent atrial fibrillation; rate cotrolled. on Eliquis for stroke prevention. Monitor Hgb. 4. ? H/o ventricular arrhythmias- on Amiodarone 400mg BID. Will attempt to obtain further cardiac records. 5. Hypertension; marginal BP. 6. Hyperlipidemia; statin 7. Diabetes, II 8. H/o CVA with chronic dysphagia s/p PEG 9. Multiple chronic wounds 10. Metabolic encephalopathy/ dementia. Neuro following Recommendations Check echo to assess LV function No aggressive diuresis warranted at this time Hold BB as warranted Obtain cardiac records. AMOS DENTON MD 07/17/18 7424: CARDIAC CONSULT ASSESSMENT/PLAN ASSESSMENT/PLAN Patient seen and examined. Agree with [employer] TE[employer]'s assessment and plan. Acute respiratory failure secondary to extensive pneumonia Continue current treatment per pulmonary team Chronic diastolic heart failure clinically well compensated Persistent atrial fibrillation rate well-controlled Continue eliquis for stroke prophylaxis Check 2-D echo to assess LV systolic function Thank you for your consultation SVETLANA PERAZA APRN Jul 17, 2018 12:23 AMOS DENTON MD Jul 17, 2018 16:54
[2018-07-17] MEDS ORDERED: ALBUMIN HUMAN 5% 250 ML IV ONE (14:00)
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
--- NOTE | 2018-07-17 15:13 | CARD ---
MR#: [id number] Date of Study: 07/17/2018 Ordering Physician: VASQUEZ PEREZ, Referring Physician: NICOL LALA Tech: Denise Martinez RDCS APPROVED REPORT EXAM: Two-dimensional and M-mode echocardiogram with Doppler and color Doppler. Other Information Quality : Good INDICATION Atrial Fibrillation History of CHF 2D DIMENSIONS RVDd3.2 (2.9-3.5cm)Left Atrium(2D)5.1 (1.6-4.0cm) IVSd1.3 (0.7-1.1cm)Aortic Root(2D)3.5 (2.0-3.7cm) LVDd4.5 (3.9-5.9cm)LVOT Diameter2.4 (1.8-2.4cm) PWd1.3 (0.7-1.1cm)LVDs3.2 (2.5-4.0cm) FS (%) 30.0 %SV53.4 ml LVEF(%)57.4 (>50%) Aortic Valve AoV Peak Wilbert.145.9cm/sAoV VTI23.9cm AO Peak GR.8.5mmHgLVOT VTI 18.57cm AO Mean GR.4mmHgAVA (VTI)3.50cm2 TDI Lateral E' P. V5.79cm/s Tricuspid Valve TR P. [id number] [id number] TR Peak Gr.[id number] LEFT VENTRICLE The left ventricle is normal size. There is mild concentric left ventricular hypertrophy. The left ve ntricular systolic function is normal. The Ejection Fraction is 55-60%. There is normal LV segmental wall motion. RIGHT VENTRICLE The right ventricle is normal size. The right ventricular systolic function is normal. ATRIA The left atrium is mild to moderately dilated. The right atrium size is normal. The interatrial septu m is intact with no evidence for an atrial septal defect or patent foramen ovale as noted on 2-D or D oppler imaging. AORTIC VALVE The aortic valve is calcified but opens well. There is aortic annular calcification. Doppler and [place] r Flow revealed trace aortic regurgitation. There is no significant aortic valvular stenosis. MITRAL VALVE The mitral valve is calcified but opens well. Mitral annular calcification is mild. There is no evide nce of mitral valve prolapse. There is no mitral valve stenosis. Doppler and Color-flow revealed trac e to mild mitral regurgitation. TRICUSPID VALVE The tricuspid valve is normal in structure and function. Doppler and Color Flow revealed mild tricusp id regurgitation. There is mild-moderate pulmonary hypertension. The PA pressure was estimated at 40 mmHg. There is no tricuspid valve stenosis. PULMONIC VALVE The pulmonary valve is normal in structure and function. Doppler and Color Flow revealed mild pulmoni c valvular regurgitation. There is no pulmonic valvular stenosis. GREAT VESSELS The aortic root is normal in size. The ascending aorta is mildly dilated at 3.7 cm. The IVC is dilate d and collapses >50% with inspiration. PERICARDIAL EFFUSION There is no evidence of significant pericardial effusion. Critical Notification Critical Value: No <Conclusion> The left ventricular systolic function is normal. The Ejection Fraction is 55-60%. There is normal LV segmental wall motion. Trace to mild mitral regurgitation. Mild tricuspid regurgitation. The PA pressure was estimated at 40 mmHg. There is no evidence of significant pericardial effusion. Signed by : Juan Carlos Tucker, Electronically Approved : 07/17/2018 15:12:00
--- NOTE | 2018-07-17 16:38 | PN ---
DATE: 07/17/2018 SUBJECTIVE: The patient is resting, slightly propped up in bed, in no apparent distress. He is on BiPAP machine, maintaining his oxygen saturation of 96% on FiO2 of 40%. He apparently is more responsive today. He opens his eyes and mouth, some words according to nursing staff; however, he continued to be hypotensive. PHYSICAL EXAMINATION: GENERAL: When I examined him, he was pale, but no jaundice, cyanosis, or thyromegaly. No jugular venous distension. No limb edema. VITAL SIGNS: His heart rate was 69, blood pressure was 85/46, temperature was 97.9, respiratory rate was 23, and oxygen saturation was 97%. HEAD, EYES, EARS, NOSE AND THROAT: Showed normocephalic, atraumatic. NECK: Supple. HEART: Showed normal first and second sounds. No gallop, rub or murmur. CHEST: Clear to auscultation. No crepitation or rhonchi. ABDOMEN: Distended, soft with a gastrostomy tube in place. NEUROLOGIC: He was lethargic, but apparently he does open his eyes and able to mouth some words according to the nursing staff. He has left middle cerebral artery territory infarct with right-sided hemiplegia. His intake over the last 24 hours was 1840, output was 820. LABORATORY DATA: His lab work this morning showed a white cell count of 7700, hemoglobin 8, hematocrit 24, MCV 85, and platelet count of 108,000 with normal manual differential. His blood gas this morning showed a pH of 7.38, pCO2 of 42, pO2 of 71, bicarbonate 24, his oxygen saturation was 94% on FiO2 of 40%. His chemistry showed a serum sodium 138, potassium 5.1, chloride 103, bicarbonate was 26, anion gap of 9, BUN 46, creatinine 1.3, estimated GFR was 55 mL per minute. His glucose was 309, calcium was 8.2. Total bilirubin, AST, ALT, alkaline phosphatase were normal. His total protein was 5.5, albumin was 2.2. ASSESSMENT: 1. Acute on chronic hypoxic hypercapnic respiratory failure. 2. Bilateral lung infiltrate, likely healthcare-associated pneumonia, for which he is on IV antibiotic in the form of vancomycin and Zosyn. 3. 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 He is on tube feeding through his percutaneous gastrostomy tube. 4. History of right thigh abscess, status post incision and drainage. There is a large wound and he has also wounds in his gluteal area with eschar and also the back of his head. PLAN: To continue with BiPAP as per the [employer] black belt. Continue with IV antibiotic. Continue with wound care. Continue with nutritional support. His blood pressure is borderline and he probably requires Levophed. NICOL LALA MD DR: HARJINDER/roni JOB#: [id number] / [id number]
[2018-07-17] MEDS: traZODone 50 MG TABLET. PO SCH (20:31)
[2018-07-17] MEDS: ATORVASTATIN CALCIUM 20 MG TABLET PO SCH (20:31)
[2018-07-17] MEDS: FINASTERIDE 5 MG TABLET. PO SCH (21:00)
[2018-07-17] MEDS: INSULIN GLARGINE 300 UNITS/3 ML INSULN.PEN. SQ SCH (22:01)
[2018-07-18] VITALS (21 sets, daily range): BP systolic 95–140; BP diastolic 41–64
[2018-07-18 00:11] LABS: VANC TR 24.4 mcg/mL (10.0-20.0)
[2018-07-18] MEDS: VANCOMYCIN 2 GM in IV NORMAL SALINE 500ML BAG 500 ML IV SCH (00:26)
[2018-07-18] MEDS: PIPERACILLIN/TAZOBACTAM 4.5 GM in IV NORMAL SALINE 100ML 100 ML IV SCH ×4 (05:47→23:58)
[2018-07-18 06:04] LABS: HEMATOCRIT 25.1 % (39.0-53.0); HEMOGLOBIN 8.1 g/dL (13.0-17.5); RED BLOOD COUNT 2.95 x10^6/uL (4.30-5.70); RED CELL DISTRIBUTION WIDTH 22.3 % (11.5-14.5); WHITE BLOOD COUNT 8.1 x10^3/uL (4.0-11.0)
[2018-07-18 06:36] LABS: ALBUMIN 2.6 g/dL (3.4-5.0); ALBUMIN/GLOBULIN RATIO 0.8 (1.0-1.7); CREATININE 1.1 mg/dL (0.7-1.3); GFR 66.8; POTASSIUM 4.6 mmol/L (3.5-5.1); TOTAL BILIRUBIN 0.6 mg/dL (0.2-1.0); TOTAL PROTEIN 5.8 g/dL (6.4-8.2)
[2018-07-18] MEDS: IPRATRPIUM/ALBUTEROL 0.5/2.5MG 3 ML NEBU. NEB SCH ×4 (07:51→19:32)
--- NOTE | 2018-07-18 08:13 | PDOC ---
Infectious Disease Note Subjective Subjective pt is awake, speaking and says ready to go home ROS ROS no n/v/d/sob Vital Sign Vital Signs Vital Signs Date Time Temp Pulse Resp B/P (MAP) Pulse Ox O2 Delivery O2 Flow Rate FiO2 07/18/18 07:51 91 Nasal Cannula 4.0 07/18/18 06:00 60 23 107/58 (74) 07/18/18 04:00 98.3 98.3 Physical Exam PHYSICAL EXAM GENERAL: Awake gentleman not in distress VITAL SIGNS: stable HEENT: Pupils are round, reacting. No conjunctival lesion. No oral lesions. NECK: Supple, no JVD, no lymphadenopathy. LUNGS: Decreased breath sounds bilaterally. CARDIOVASCULAR: S1, S2 regular. No gallop or murmur. ABDOMEN: Soft, nontender, no organomegaly. EXTREMITIES: No edema or cyanosis. He has a very large defect on the right anterior thigh and the 90%-95% of the wound looks very clean and healthy red granulation tissue, only about 5%-10%, there is necrotic tissue. The patient has a sacrococcygeal decubitus with necrotic tissue and there are pressure changes on the scalp. Rest of skin exam is unremarkable. The patient does move all the extremities, although neurologically, he has advanced dementia and able to communicate in a very limited fashion. Labs Lab Laboratory Tests Test 07/17/18 14:08 07/17/18 19:41 07/17/18 21:56 07/17/18 23:40 Glucose (Fingerstick) 284 mg/dL (70-99) 249 mg/dL (70-99) 274 mg/dL (70-99) Vancomycin Level Trough 24.4 mcg/mL (10.0-20.0) Vancomycin Last Dose Date Vancomycin Last Dose Time Test 07/18/18 05:47 White Blood Count 8.1 x10^3/uL (4.0-11.0) Red Blood Count 2.95 x10^6/uL (4.30-5.70) Hemoglobin 8.1 g/dL (13.0-17.5) Hematocrit 25.1 % (39.0-53.0) Mean Corpuscular Volume 85 fL (79-100) Mean Corpuscular Hemoglobin 28 pg (25-35) Mean Corpuscular Hemoglobin Concent 32 g/dL (31-37) Red Cell Distribution Width 22.3 % (11.5-14.5) Platelet Count 153 x10^3/uL (140-400) Prothrombin Time 19.0 SEC (11.7-14.0) Prothromb Time International Ratio 1.7 (0.8-1.1) Sodium Level 143 mmol/L (136-145) Potassium Level 4.6 mmol/L (3.5-5.1) Chloride Level 107 mmol/L (98-107) Carbon Dioxide Level 25 mmol/L (21-32) Anion Gap 11 (6-14) Blood Urea Nitrogen 43 mg/dL (8-26) Creatinine 1.1 mg/dL (0.7-1.3) Estimated GFR (Cockcroft-Gault) 66.8 BUN/Creatinine Ratio 39 (6-20) Glucose Level 259 mg/dL (70-99) Calcium Level 8.0 mg/dL (8.5-10.1) Total Bilirubin 0.6 mg/dL (0.2-1.0) Aspartate Amino Transf (AST/SGOT) 17 U/L (15-37) Alanine Aminotransferase (ALT/SGPT) 31 U/L (16-63) Alkaline Phosphatase 162 U/L (46-116) Total Protein 5.8 g/dL (6.4-8.2) Albumin 2.6 g/dL (3.4-5.0) Albumin/Globulin Ratio 0.8 (1.0-1.7) Objective Assessment 1. Encephalopathy, unclear what the baseline is right now. 2. Bilateral pulmonary infiltrate pneumonia, healthcare facility associated pneumonia versus congestive heart failure versus combination of both. 3. Advanced dementia. 4. Very large right anterior thigh wound. 5. Sacrococcygeal wound, necrotic. 6. Pressure changes on the posterior scalp. Plan Plan of Care cont antibiotics cont supportive care cont wound care off load BRIAN العراقي MD Jul 18, 2018 08:13
--- NOTE | 2018-07-18 08:26 | PDOC2 ---
JULIO LEONARD ONLINE USER EXPERIENCE STRATEGIST 07/18/18 0826: CONSULT Date of Consult Date of Consult DATE: 07/18/18 TIME: 08:15 Reason for Consult Reason for Consult: wounds Referring Physician Referring Physician: Dr iqbal Identification/Chief Complaint Chief Complaint resp distress Source Source: Caregiver, Chart review History of Present Illness Reason for Visit: Admitted with respiratory distress and altered mental status. Imaging noted pneumonia. He has a large thigh wound(currently with wound vac in place), was debrided at by orthopedics a couple of weeks ago. Large coccyx wound and a scalp wound. Significant medical hx including CVA, dysphagia, paraplegia, Afib , DM Past Medical History Cardiovascular: AFIB, CHF, HTN, Hyperlipidemia Pulmonary: COPD CENTRAL NERVOUS SYSTEM: CVA, Dementia, Other (dysphagia) Heme/Onc: No pertinent hx Hepatobiliary: No pertinent hx Psych: No pertinent hx Musculoskeletal: Osteoarthritis Rheumatologic: No pertinent hx Infectious disease: No pertinent hx, Other (MRSA) ENT: No pertinent hx Renal/: Chronic renal failure, Benign prostatic enlarg. Endocrine: Diabetes Past Surgical History Past Surgical History: Appendectomy, Cholecystectomy, Other (PEG, right shoulder surgery) Family History Family History: Family History Unknown Social History Lives: Shelter Current Medications Current Medications Current Medications Vancomycin HCl (Vanco Per Pharmacy) 1 each PRN DAILY PRN MC SEE COMMENTS Last administered on 07/17/18at 10:50; Start 07/16/18 at 14:15 Piperacillin Sod/ Tazobactam Sod (Zosyn Per Pharmacy) 1 each PRN DAILY PRN MC SEE COMMENTS; Start 07/16/18 at 14:15 Piperacillin Sod/ Tazobactam Sod 4.5 gm/Sodium Chloride 100 ml @ 200 mls/hr Q6HRS IV Last administered on 07/18/18at 05:47; Start 07/16/18 at 18:00 Vancomycin HCl 2 gm/Sodium Chloride 500 ml @ 250 mls/hr Q18H IV Last administered on 07/18/18at 00:26; Start 07/17/18 at 06:00 Vancomycin HCl (Vancomycin Trough Level) 1 each 1X ONCE MC ; Start 07/18/18 at 23:30; Stop 07/18/18 at 23:31 Albuterol/ Ipratropium (Duoneb) 3 ml RTQID NEB Last administered on 07/18/18at 07:51; Start 07/16/18 at 20:00 Albuterol Sulfate (Ventolin Neb Soln) 2.5 mg PRN Q4HRS PRN NEB SHORTNESS OF BREATH; Start 07/16/18 at 17:45 Acetaminophen (Tylenol) 650 mg PRN Q6HRS PRN PO MILD PAIN / TEMP; Start at 18:15 Amiodarone HCl (Cordarone) 400 mg BID PO Last administered on 07/17/18 20:32 ; Start 07/16/18 at 21:00 Apixaban (Eliquis) 5 mg BID PO Last administered on 07/17/18 20:32; Start at 21:00 Atorvastatin Calcium (Lipitor) 20 mg HS PO Last administered on 07/17/18 20: 31; Start 07/16/18 at 21:00 Doxazosin Mesylate (Cardura) 4 mg DAILY PO ; Start 07/16/18 at 19:00 Finasteride (Proscar) 5 mg QHS PO Last administered on 07/17/18at 21:00; Start 07/16/18 at 21:00 Insulin Glargine (Lantus) 40 units QHS SQ Last administered on 07/17/18at 22:01 ; Start 07/16/18 at 21:00 Metoprolol Tartrate (Lopressor) 25 mg BID PO ; Start 07/16/18 at 21:00 Polyethylene Glycol (miraLAX PACKET) 34 gm BID PO Last administered on at 20:32; Start 07/16/18 at 21:00 Trazodone HCl (Desyrel) 50 mg HS PO Last administered on 07/17/18 20:31; Start 07/16/18 at 21:00 Ferrous Sulfate (Iron Oral Solution) 300 mg DAILY PO Last administered on 07/17 20:31; Start 07/16/18 at 19:00 Insulin Human Lispro (HumaLOG) 20 units TID@0800,1400,2000 SQ Last administered on 07/17/18at 19:46; Start 07/16/18 at 20:00 Lactobacillus Rhamnosus (Culturelle) 1 cap BID PO Last administered on at 20:32; Start 07/16/18 at 21:00 Non-Formulary Medication (Melatonin ) 6 mg PRN QHS PO ; Start 07/16/18 at 18: 15; Status UNV Multivitamins (Thera-Plus Oral Liquid) 5 ml DAILY PO Last administered on 07/17at 10:07; Start 07/16/18 at 19:00 Nystatin (Nystatin Oral Susp) 5 ml [id number] Last administered on at 20:32; Start 07/16/18 at 21:00 Info (Anti-Coagulation Monitoring By Pharmacy) 1 each PRN DAILY PRN MC SEE COMMENTS Last administered on 07/17/18at 10:51; Start 07/17/18 at 09:15 Norepinephrine Bitartrate 250 ml @ 1.875 mls/ hr CONT PRN IV SEE I/O RECORD Last administered on 07/17/18at 17:43; Start 07/17/18 at 09:45 Albumin Human 500 ml @ 125 mls/hr 1X ONCE IV Last administered on 07/17/18at 11:22; Start 07/17/18 at 10:45; Stop 07/17/18 at 14:44; Status DC Albumin Human 250 ml @ 62.5 mls/hr 1X ONCE IV Last administered on at 14:07; Start 07/17/18 at 14:00; Stop 07/17/18 at 17:59; Status DC Active Scripts Active Reported Digoxin 125 Mcg Tablet 125 Mcg PO QHS Ultra Nancy Plus Capsule (Lactobac/Bifidobac/Glob Pr Con) 1 Each Capsule 1 Each PO BID Eliquis (Apixaban) 5 Mg Tablet 5 Mg PO BID Atorvastatin Calcium 20 Mg Tablet 20 Mg PO HS Tramadol Hcl 50 Mg Tablet 50 Mg PO Q6HRS PRN [place]-3 ([place]-3 Fatty Acids) 1,000 Mg Capsule 2,000 Mg PO Amiodarone Hcl 200 Mg Tablet 400 Mg PO BID Acetaminophen Oral Liquid (Acetaminophen) 650 Mg/20.3 Ml Solution 650 Mg PO PRN Q6HRS Ferrous Sulfate 220 Mg/5 Ml Elixir 5 Ml PO DAILY Melatonin 3 Mg Tablet 6 Mg PO PRN QHS Metoprolol Tartrate 25 Mg Tablet 25 Mg PO BID Doxazosin Mesylate 4 Mg Tablet 4 Mg PO DAILY Novolog Flexpen (Insulin Aspart) 100 Unit/1 Ml Insuln.pen 20 Unit SQ TID@0800, 1400,2000 Lantus Solostar (Insulin Glargine,Hum.rec.anlog) 100 Unit/1 Ml Insuln.pen 40 Unit SQ QHS Nystatin 100,000 Unit/1 Ml Oral.susp 5 Ml PO QID Finasteride 5 Mg Tablet 5 Mg PO QHS Trazodone Hcl 50 Mg Tablet 50 Mg PO HS Polyethylene Glycol 3350 255 Gm Powder 34 Gm PO BID [employer] [place] Liquid (Multivits W-Min/Ferrous Gluc) 9 Mg/15 Ml Liquid 9 Mg PO DAILY Allergies Allergies: Coded Allergies: metformin (Verified Allergy, Intermediate, 07/16/18) pioglitazone (Verified Allergy, Intermediate, 07/16/18) ROS Review of System difficult to obtain, AMS Physical Exam General: Cooperative, No acute distress, Other (awake) HEENT: Mucous membr. moist/pink, Other (scalp wound, eshcar, dry) Lungs: Other (diminished, off bipap) Heart: Normal S1, Normal S2 Abdomen: Soft, Other (ND, peg in place) Extremities: No clubbing, No cyanosis, Other (right thigh wound--vac in place, reviewed pictures--wound appears clean, no surrounding erythema ) Skin: Other (coccyx wound, difficult to view, recieving breathing treatment, stool amount of incontient stool--pictures viewed, wound with slough and eschar ) MUSCULOSKELETAL: No deformity, No swelling Vitals VITALS Vital Signs Date Time Temp Pulse Resp B/P (MAP) Pulse Ox O2 Delivery O2 Flow Rate FiO2 07/18/18 07:51 91 Nasal Cannula 4.0 07/18/18 06:00 60 23 107/58 (74) 07/18/18 04:00 98.3 98.3 Labs Labs Laboratory Tests Test 07/16/18 16:00 07/16/18 21:22 07/17/18 02:50 07/17/18 07:20 Nasal Screen MRSA (PCR) Negative (Negative) Glucose (Fingerstick) 188 mg/dL (70-99) White Blood Count 7.7 x10^3/uL (4.0-11.0) Red Blood Count 2.87 x10^6/uL (4.30-5.70) Hemoglobin 8.0 g/dL (13.0-17.5) Hematocrit 24.3 % (39.0-53.0) Mean Corpuscular Volume 85 fL (79-100) Mean Corpuscular Hemoglobin 28 pg (25-35) Mean Corpuscular Hemoglobin Concent 33 g/dL (31-37) Red Cell Distribution Width 21.8 % (11.5-14.5) Platelet Count 108 x10^3/uL (140-400) Neutrophils (%) (Auto) 89 % (31-73) Lymphocytes (%) (Auto) 7 % (24-48) Monocytes (%) (Auto) 5 % (0-9) Eosinophils (%) (Auto) 0 % (0-3) Basophils (%) (Auto) 0 % (0-3) Neutrophils # (Auto) 6.8 x10^3uL (1.8-7.7) Lymphocytes # (Auto) 0.5 x10^3/uL (1.0-4.8) Monocytes # (Auto) 0.4 x10^3/uL (0.0-1.1) Eosinophils # (Auto) 0.0 x10^3/uL (0.0-0.7) Basophils # (Auto) 0.0 x10^3/uL (0.0-0.2) Segmented Neutrophils % 90 % (35-66) Band Neutrophils % 2 % (0-9) Lymphocytes % 5 % (24-48) Monocytes % 3 % (0-10) Toxic Granulation Mod Platelet Estimate Decreased (ADEQUATE) Polychromasia Slight Basophilic Stippling Present Anisocytosis Mod Sodium Level 138 mmol/L (136-145) Potassium Level 5.1 mmol/L (3.5-5.1) Chloride Level 103 mmol/L (98-107) Carbon Dioxide Level 26 mmol/L (21-32) Anion Gap 9 (6-14) Blood Urea Nitrogen 46 mg/dL (8-26) Creatinine 1.3 mg/dL (0.7-1.3) Estimated GFR (Cockcroft-Gault) 55.1 BUN/Creatinine Ratio 35 (6-20) Glucose Level 309 mg/dL (70-99) Calcium Level 8.2 mg/dL (8.5-10.1) Total Bilirubin 0.5 mg/dL (0.2-1.0) Aspartate Amino Transf (AST/SGOT) 13 U/L (15-37) Alanine Aminotransferase (ALT/SGPT) 22 U/L (16-63) Alkaline Phosphatase 111 U/L (46-116) Creatine Kinase 10 U/L (39-308) UC-Bnz-B-Type Natriuretic Peptide 4614 pg/mL (0-124) Total Protein 5.5 g/dL (6.4-8.2) Albumin 2.2 g/dL (3.4-5.0) Albumin/Globulin Ratio 0.7 (1.0-1.7) Vitamin B12 Level 679 pg/mL (247-911) Thyroid Stimulating Hormone (TSH) 3.990 uIU/mL (0.358-3.74) O2 Saturation 94 % (92-99) Arterial Blood pH 7.38 (7.35-7.45) Arterial Blood pCO2 at Patient Temp 42 mmHg (35-46) Arterial Blood pO2 at Patient Temp 71 mmHg (65-108) Arterial Blood HCO3 24 mmol/L (21-28) Arterial Blood Base Excess -1 mmol/L (-3-3) FiO2 40 Test 07/17/18 07:39 07/17/18 14:08 07/17/18 19:41 07/17/18 21:56 Glucose (Fingerstick) 262 mg/dL (70-99) 284 mg/dL (70-99) 249 mg/dL (70-99) 274 mg/dL (70-99) Test 07/17/18 23:40 07/18/18 05:47 Vancomycin Level Trough 24.4 mcg/mL (10.0-20.0) Vancomycin Last Dose Date Vancomycin Last Dose Time White Blood Count 8.1 x10^3/uL (4.0-11.0) Red Blood Count 2.95 x10^6/uL (4.30-5.70) Hemoglobin 8.1 g/dL (13.0-17.5) Hematocrit 25.1 % (39.0-53.0) Mean Corpuscular Volume 85 fL (79-100) Mean Corpuscular Hemoglobin 28 pg (25-35) Mean Corpuscular Hemoglobin Concent 32 g/dL (31-37) Red Cell Distribution Width 22.3 % (11.5-14.5) Platelet Count 153 x10^3/uL (140-400) Prothrombin Time 19.0 SEC (11.7-14.0) Prothromb Time International Ratio 1.7 (0.8-1.1) Sodium Level 143 mmol/L (136-145) Potassium Level 4.6 mmol/L (3.5-5.1) Chloride Level 107 mmol/L (98-107) Carbon Dioxide Level 25 mmol/L (21-32) Anion Gap 11 (6-14) Blood Urea Nitrogen 43 mg/dL (8-26) Creatinine 1.1 mg/dL (0.7-1.3) Estimated GFR (Cockcroft-Gault) 66.8 BUN/Creatinine Ratio 39 (6-20) Glucose Level 259 mg/dL (70-99) Calcium Level 8.0 mg/dL (8.5-10.1) Total Bilirubin 0.6 mg/dL (0.2-1.0) Aspartate Amino Transf (AST/SGOT) 17 U/L (15-37) Alanine Aminotransferase (ALT/SGPT) 31 U/L (16-63) Alkaline Phosphatase 162 U/L (46-116) Total Protein 5.8 g/dL (6.4-8.2) Albumin 2.6 g/dL (3.4-5.0) Albumin/Globulin Ratio 0.8 (1.0-1.7) Laboratory Tests Test 07/17/18 14:08 07/17/18 19:41 07/17/18 21:56 07/17/18 23:40 Glucose (Fingerstick) 284 mg/dL (70-99) 249 mg/dL (70-99) 274 mg/dL (70-99) Vancomycin Level Trough 24.4 mcg/mL (10.0-20.0) Vancomycin Last Dose Date Vancomycin Last Dose Time Test 07/18/18 05:47 White Blood Count 8.1 x10^3/uL (4.0-11.0) Red Blood Count 2.95 x10^6/uL (4.30-5.70) Hemoglobin 8.1 g/dL (13.0-17.5) Hematocrit 25.1 % (39.0-53.0) Mean Corpuscular Volume 85 fL (79-100) Mean Corpuscular Hemoglobin 28 pg (25-35) Mean Corpuscular Hemoglobin Concent 32 g/dL (31-37) Red Cell Distribution Width 22.3 % (11.5-14.5) Platelet Count 153 x10^3/uL (140-400) Prothrombin Time 19.0 SEC (11.7-14.0) Prothromb Time International Ratio 1.7 (0.8-1.1) Sodium Level 143 mmol/L (136-145) Potassium Level 4.6 mmol/L (3.5-5.1) Chloride Level 107 mmol/L (98-107) Carbon Dioxide Level 25 mmol/L (21-32) Anion Gap 11 (6-14) Blood Urea Nitrogen 43 mg/dL (8-26) Creatinine 1.1 mg/dL (0.7-1.3) Estimated GFR (Cockcroft-Gault) 66.8 BUN/Creatinine Ratio 39 (6-20) Glucose Level 259 mg/dL (70-99) Calcium Level 8.0 mg/dL (8.5-10.1) Total Bilirubin 0.6 mg/dL (0.2-1.0) Aspartate Amino Transf (AST/SGOT) 17 U/L (15-37) Alanine Aminotransferase (ALT/SGPT) 31 U/L (16-63) Alkaline Phosphatase 162 U/L (46-116) Total Protein 5.8 g/dL (6.4-8.2) Albumin 2.6 g/dL (3.4-5.0) Albumin/Globulin Ratio 0.8 (1.0-1.7) Assessment/Plan Assessment/Plan resp distress, ams pneumonia wound to coccyx--will likely need debridement at some point--when stable, will review with Dr Fields thigh wound appears clean--continue vac, can view wound better with vac change on Tue would not plan any surgical recs for scalp wound currently TF not on hold, on eliquis, requiring pressor support JUDAH FIELDS MD 07/18/18 0854: CONSULT Assessment/Plan Assessment/Plan Reviewed, agree with above JULOI LEONARD APRN Jul 18, 2018 08:26 JUDAH FIELDS MD Jul 18, 2018 08:54
[2018-07-18] MEDS: DOXAZOSIN MESYLATE 4 MG TABLET. PO SCH ×2 (09:00→11:06)
--- NOTE | 2018-07-18 09:12 | PN ---
DATE: 07/18/2018 SUBJECTIVE: The patient is resting slightly propped up in bed, in no apparent distress. He is more awake, alert, responding appropriately. He continued to be on small dose of Levophed. He was seen by the wound care team and has a wound vacuum assisted closure device to the wound on anterior thigh. He was evaluated by the surgical team and he is scheduled for debridement. He has multiple loose bowel movements and we will arrange for him to have a rectal tube to prevent soiling of his wounds. PHYSICAL EXAMINATION: GENERAL: When I examined him, he was pale. No jaundice, cyanosis, or thyromegaly. No jugular venous distension. No limb edema. VITAL SIGNS: His heart rate was 60, blood pressure was 107/58, temperature was 98.3, respiratory rate was 23, and oxygen saturation was 99% on 4 liters of oxygen by nasal cannula. HEAD, EYES, EARS, NOSE AND THROAT: Showed normocephalic, atraumatic. NECK: Supple. HEART: Showed normal first and second heart sounds. No gallop, rub or murmur. CHEST: Clear to auscultation. No crepitation or rhonchi. ABDOMEN: Distended, soft, nontender with a gastrostomy tube in place. NEUROLOGIC: He was sleepy, but arousable. He is definitely more responsive. All his cranial nerves are intact. He has left middle cerebral artery territory infarct with right-sided hemiplegia, aphasia and dysphagia. He has multiple wounds on the back of his head, anterior aspect of the right thigh and bilateral gluteal decubitus ulcer. His intake over the last 24 hours was 1840, output was 820. LABORATORY DATA: This morning showed a white cell count of 8100, hemoglobin 8.1, hematocrit 25, MCV 85, platelet count of 153,000. His chemistry showed a serum sodium 143, potassium 4.6, chloride 107, bicarbonate 25, anion gap of 11, BUN 43, creatinine 1.1, estimated GFR was 66 mL per minute, glucose was 259, calcium was 8. Total bilirubin, AST, ALT were normal. Alkaline phosphatase 162. Total protein was 5.8, albumin was 2.6. His prothrombin time was 19, INR 1.7. ASSESSMENT: 1. Acute on chronic hypoxic hypercapnic respiratory failure. 2. Bilateral lung infiltrate, likely healthcare-associated pneumonia for which he is on IV antibiotic in the form of vancomycin and Zosyn. 3. Left middle cerebral artery territory infarct with right-sided hemiplegia, aphasia and dysphagia. He is on tube feeding through his percutaneous endoscopic gastrostomy tube. 4. History of right thigh abscess, status post incision and drainage. 5. There are large wounds on both gluteal area with eschar, also back of his head. 6. Type 2 diabetes mellitus, suboptimally controlled. 7. Anemia of chronic kidney disease, morbid obesity, hyperlipidemia. PLAN: Obviously to continue with nutritional support. Continue with IV antibiotic in the form of vancomycin as well as piperacillin/tazobactam. Continue with vasopressors. Continue with all other medication and we will place a rectal tube to prevent soiling his wounds and apparently he was evaluated by the surgical team and will undergo surgical debridement sometimes tomorrow or after tomorrow. NICOL LALA MD DR: HARJINDER/roni JOB#: [id number] / [id number]
--- NOTE | 2018-07-18 09:16 | PDOC ---
PULMONARY PROGRESS NOTES Subjective PT OFF BIPAP Vitals Vital Signs Date Time Temp Pulse Resp B/P (MAP) Pulse Ox O2 Delivery O2 Flow Rate FiO2 07/18/18 07:51 91 Nasal Cannula 4.0 07/18/18 06:00 60 23 107/58 (74) 07/18/18 04:00 98.3 98.3 ROS: No Nausea, No Chest Pain, No Abdominal Pain, No Increase Cough General: Alert Lungs: Crackles Cardiovascular: S1, S2 Abdomen: Soft, Other (PEG) Neuro Exam: Alert Extremities: Other (EDEMA) Skin: Warm Labs Laboratory Tests Test 07/16/18 16:00 07/16/18 21:22 07/17/18 02:50 07/17/18 07:20 Nasal Screen MRSA (PCR) Negative (Negative) Glucose (Fingerstick) 188 mg/dL (70-99) White Blood Count 7.7 x10^3/uL (4.0-11.0) Red Blood Count 2.87 x10^6/uL (4.30-5.70) Hemoglobin 8.0 g/dL (13.0-17.5) Hematocrit 24.3 % (39.0-53.0) Mean Corpuscular Volume 85 fL (79-100) Mean Corpuscular Hemoglobin 28 pg (25-35) Mean Corpuscular Hemoglobin Concent 33 g/dL (31-37) Red Cell Distribution Width 21.8 % (11.5-14.5) Platelet Count 108 x10^3/uL (140-400) Neutrophils (%) (Auto) 89 % (31-73) Lymphocytes (%) (Auto) 7 % (24-48) Monocytes (%) (Auto) 5 % (0-9) Eosinophils (%) (Auto) 0 % (0-3) Basophils (%) (Auto) 0 % (0-3) Neutrophils # (Auto) 6.8 x10^3uL (1.8-7.7) Lymphocytes # (Auto) 0.5 x10^3/uL (1.0-4.8) Monocytes # (Auto) 0.4 x10^3/uL (0.0-1.1) Eosinophils # (Auto) 0.0 x10^3/uL (0.0-0.7) Basophils # (Auto) 0.0 x10^3/uL (0.0-0.2) Segmented Neutrophils % 90 % (35-66) Band Neutrophils % 2 % (0-9) Lymphocytes % 5 % (24-48) Monocytes % 3 % (0-10) Toxic Granulation Mod Platelet Estimate Decreased (ADEQUATE) Polychromasia Slight Basophilic Stippling Present Anisocytosis Mod Sodium Level 138 mmol/L (136-145) Potassium Level 5.1 mmol/L (3.5-5.1) Chloride Level 103 mmol/L (98-107) Carbon Dioxide Level 26 mmol/L (21-32) Anion Gap 9 (6-14) Blood Urea Nitrogen 46 mg/dL (8-26) Creatinine 1.3 mg/dL (0.7-1.3) Estimated GFR (Cockcroft-Gault) 55.1 BUN/Creatinine Ratio 35 (6-20) Glucose Level 309 mg/dL (70-99) Calcium Level 8.2 mg/dL (8.5-10.1) Total Bilirubin 0.5 mg/dL (0.2-1.0) Aspartate Amino Transf (AST/SGOT) 13 U/L (15-37) Alanine Aminotransferase (ALT/SGPT) 22 U/L (16-63) Alkaline Phosphatase 111 U/L (46-116) Creatine Kinase 10 U/L (39-308) LI-Ili-T-Type Natriuretic Peptide 4614 pg/mL (0-124) Total Protein 5.5 g/dL (6.4-8.2) Albumin 2.2 g/dL (3.4-5.0) Albumin/Globulin Ratio 0.7 (1.0-1.7) Vitamin B12 Level 679 pg/mL (247-911) Thyroid Stimulating Hormone (TSH) 3.990 uIU/mL (0.358-3.74) O2 Saturation 94 % (92-99) Arterial Blood pH 7.38 (7.35-7.45) Arterial Blood pCO2 at Patient Temp 42 mmHg (35-46) Arterial Blood pO2 at Patient Temp 71 mmHg (65-108) Arterial Blood HCO3 24 mmol/L (21-28) Arterial Blood Base Excess -1 mmol/L (-3-3) FiO2 40 Test 07/17/18 07:39 07/17/18 14:08 07/17/18 19:41 07/17/18 21:56 Glucose (Fingerstick) 262 mg/dL (70-99) 284 mg/dL (70-99) 249 mg/dL (70-99) 274 mg/dL (70-99) Test 07/17/18 23:40 07/18/18 05:47 Vancomycin Level Trough 24.4 mcg/mL (10.0-20.0) Vancomycin Last Dose Date Vancomycin Last Dose Time White Blood Count 8.1 x10^3/uL (4.0-11.0) Red Blood Count 2.95 x10^6/uL (4.30-5.70) Hemoglobin 8.1 g/dL (13.0-17.5) Hematocrit 25.1 % (39.0-53.0) Mean Corpuscular Volume 85 fL (79-100) Mean Corpuscular Hemoglobin 28 pg (25-35) Mean Corpuscular Hemoglobin Concent 32 g/dL (31-37) Red Cell Distribution Width 22.3 % (11.5-14.5) Platelet Count 153 x10^3/uL (140-400) Prothrombin Time 19.0 SEC (11.7-14.0) Prothromb Time International Ratio 1.7 (0.8-1.1) Sodium Level 143 mmol/L (136-145) Potassium Level 4.6 mmol/L (3.5-5.1) Chloride Level 107 mmol/L (98-107) Carbon Dioxide Level 25 mmol/L (21-32) Anion Gap 11 (6-14) Blood Urea Nitrogen 43 mg/dL (8-26) Creatinine 1.1 mg/dL (0.7-1.3) Estimated GFR (Cockcroft-Gault) 66.8 BUN/Creatinine Ratio 39 (6-20) Glucose Level 259 mg/dL (70-99) Calcium Level 8.0 mg/dL (8.5-10.1) Total Bilirubin 0.6 mg/dL (0.2-1.0) Aspartate Amino Transf (AST/SGOT) 17 U/L (15-37) Alanine Aminotransferase (ALT/SGPT) 31 U/L (16-63) Alkaline Phosphatase 162 U/L (46-116) Total Protein 5.8 g/dL (6.4-8.2) Albumin 2.6 g/dL (3.4-5.0) Albumin/Globulin Ratio 0.8 (1.0-1.7) Laboratory Tests Test 07/17/18 14:08 07/17/18 19:41 07/17/18 21:56 07/17/18 23:40 Glucose (Fingerstick) 284 mg/dL (70-99) 249 mg/dL (70-99) 274 mg/dL (70-99) Vancomycin Level Trough 24.4 mcg/mL (10.0-20.0) Vancomycin Last Dose Date Vancomycin Last Dose Time Test 07/18/18 05:47 White Blood Count 8.1 x10^3/uL (4.0-11.0) Red Blood Count 2.95 x10^6/uL (4.30-5.70) Hemoglobin 8.1 g/dL (13.0-17.5) Hematocrit 25.1 % (39.0-53.0) Mean Corpuscular Volume 85 fL (79-100) Mean Corpuscular Hemoglobin 28 pg (25-35) Mean Corpuscular Hemoglobin Concent 32 g/dL (31-37) Red Cell Distribution Width 22.3 % (11.5-14.5) Platelet Count 153 x10^3/uL (140-400) Prothrombin Time 19.0 SEC (11.7-14.0) Prothromb Time International Ratio 1.7 (0.8-1.1) Sodium Level 143 mmol/L (136-145) Potassium Level 4.6 mmol/L (3.5-5.1) Chloride Level 107 mmol/L (98-107) Carbon Dioxide Level 25 mmol/L (21-32) Anion Gap 11 (6-14) Blood Urea Nitrogen 43 mg/dL (8-26) Creatinine 1.1 mg/dL (0.7-1.3) Estimated GFR (Cockcroft-Gault) 66.8 BUN/Creatinine Ratio 39 (6-20) Glucose Level 259 mg/dL (70-99) Calcium Level 8.0 mg/dL (8.5-10.1) Total Bilirubin 0.6 mg/dL (0.2-1.0) Aspartate Amino Transf (AST/SGOT) 17 U/L (15-37) Alanine Aminotransferase (ALT/SGPT) 31 U/L (16-63) Alkaline Phosphatase 162 U/L (46-116) Total Protein 5.8 g/dL (6.4-8.2) Albumin 2.6 g/dL (3.4-5.0) Albumin/Globulin Ratio 0.8 (1.0-1.7) Medications Active Scripts Medications Dose Route/Sig Max Daily Dose Days Date Category Digoxin 125 Mcg Tablet 125 Mcg PO QHS 07/16/18 Reported Ultra Nancy Plus Capsule (Lactobac/Bifidobac/Glob Pr Con) 1 Each Capsule 1 Each PO BID 07/16/18 Reported Eliquis (Apixaban) 5 Mg Tablet 5 Mg PO BID 07/16/18 Reported Atorvastatin Calcium 20 Mg Tablet 20 Mg PO HS 07/16/18 Reported Tramadol Hcl 50 Mg Tablet 50 Mg PO Q6HRS PRN 07/16/18 Reported [place]-3 ([place]-3 Fatty Acids) 1,000 Mg Capsule 2,000 Mg PO 07/16/18 Reported Amiodarone Hcl 200 Mg Tablet 400 Mg PO BID 07/16/18 Reported Acetaminophen Oral Liquid (Acetaminophen) 650 Mg/20.3 Ml Solution 650 Mg PO PRN Q6HRS 07/16/18 Reported Ferrous Sulfate 220 Mg/5 Ml Elixir 5 Ml PO DAILY 07/16/18 Reported Melatonin 3 Mg Tablet 6 Mg PO PRN QHS 07/16/18 Reported Metoprolol Tartrate 25 Mg Tablet 25 Mg PO BID 07/16/18 Reported Doxazosin Mesylate 4 Mg Tablet 4 Mg PO DAILY 07/16/18 Reported Novolog Flexpen (Insulin Aspart) 100 Unit/1 Ml Insuln.pen 20 Unit SQ TID@0800,1400,2000 07/16/18 Reported Lantus Solostar (Insulin Glargine,Hum.rec.anlog) 100 Unit/1 Ml Insuln.pen 40 Unit SQ QHS 07/16/18 Reported Nystatin 100,000 Unit/1 Ml Oral.susp 5 Ml PO QID 07/16/18 Reported Finasteride 5 Mg Tablet 5 Mg PO QHS 07/16/18 Reported Trazodone Hcl 50 Mg Tablet 50 Mg PO HS 07/16/18 Reported Polyethylene Glycol 3350 255 Gm Powder 34 Gm PO BID 07/16/18 Reported Certa Jordan Liquid (Multivits W-Min/Ferrous Gluc) 9 Mg/15 Ml Liquid 9 Mg PO DAILY 07/16/18 Reported Impression . IMPRESSION: 1. Acute hypoxic respiratory failure secondary to extensive pneumonia. 2. Abnormal CT chest with bilateral consolidation consistent with pneumonia and a small pleural effusion 3. Anemia. 4. Hypotension/Sepsis 5. No significant history of tobacco use. 6. History of prior cerebrovascular accident with dysphagia and chronic PEG tube placement. 7. Large right thigh wounds. <Conclusion> The left ventricular systolic function is normal. The Ejection Fraction is 55-60%. There is normal LV segmental wall motion. Trace to mild mitral regurgitation. Mild tricuspid regurgitation. The PA pressure was estimated at 40 mmHg. There is no evidence of significant pericardial effusion. Plan . PRN BIPAP CONTINUE ANTIBX REPEAT CXR DVT PROPH PEG TUBE FEEDING NPO ECHO REPORT NOTED LLUVIA TURK MD Jul 18, 2018 09:16
--- NOTE | 2018-07-18 10:08 | PDOC ---
FUNMILAYO WEST COMMUNITY MUSIC THERAPIST 07/18/18 1008: CARDIO Progress Notes Date and Time Date of Service 07/18/2018 Time of Evaluation 0930 Subjective Subjective: No Chest Pain, No shortness of breath, No Palpitations Vitals Vitals Vital Signs Date Time Temp Pulse Resp B/P (MAP) Pulse Ox O2 Delivery O2 Flow Rate FiO2 07/18/18 07:51 91 Nasal Cannula 4.0 07/18/18 06:00 60 23 107/58 (74) 07/18/18 04:00 98.3 98.3 Weight Weight [ ] Input and Output Intake and Output Intake and Output 07/18/18 07:00 Intake Total 4928 ml Output Total 1231 ml Balance 3697 ml Intake IV Total 2288 ml Tube Feeding 2040 ml Other 600 ml Output Urine Total 1231 ml # Bowel Movements 1 Laboratory Labs Laboratory Tests Test 07/17/18 14:08 07/17/18 19:41 07/17/18 21:56 07/17/18 23:40 Glucose (Fingerstick) 284 mg/dL (70-99) 249 mg/dL (70-99) 274 mg/dL (70-99) Vancomycin Level Trough 24.4 mcg/mL (10.0-20.0) Vancomycin Last Dose Date Vancomycin Last Dose Time Test 07/18/18 05:47 White Blood Count 8.1 x10^3/uL (4.0-11.0) Red Blood Count 2.95 x10^6/uL (4.30-5.70) Hemoglobin 8.1 g/dL (13.0-17.5) Hematocrit 25.1 % (39.0-53.0) Mean Corpuscular Volume 85 fL (79-100) Mean Corpuscular Hemoglobin 28 pg (25-35) Mean Corpuscular Hemoglobin Concent 32 g/dL (31-37) Red Cell Distribution Width 22.3 % (11.5-14.5) Platelet Count 153 x10^3/uL (140-400) Prothrombin Time 19.0 SEC (11.7-14.0) Prothromb Time International Ratio 1.7 (0.8-1.1) Sodium Level 143 mmol/L (136-145) Potassium Level 4.6 mmol/L (3.5-5.1) Chloride Level 107 mmol/L (98-107) Carbon Dioxide Level 25 mmol/L (21-32) Anion Gap 11 (6-14) Blood Urea Nitrogen 43 mg/dL (8-26) Creatinine 1.1 mg/dL (0.7-1.3) Estimated GFR (Cockcroft-Gault) 66.8 BUN/Creatinine Ratio 39 (6-20) Glucose Level 259 mg/dL (70-99) Calcium Level 8.0 mg/dL (8.5-10.1) Total Bilirubin 0.6 mg/dL (0.2-1.0) Aspartate Amino Transf (AST/SGOT) 17 U/L (15-37) Alanine Aminotransferase (ALT/SGPT) 31 U/L (16-63) Alkaline Phosphatase 162 U/L (46-116) Total Protein 5.8 g/dL (6.4-8.2) Albumin 2.6 g/dL (3.4-5.0) Albumin/Globulin Ratio 0.8 (1.0-1.7) Physical Exam HEENT: Neck Supple W Full Motion Chest: Symmetric LUNGS: Other (diminished bases) Heart: irregularly irregular (afib/aflutter) Abdomen: Soft N/T Extremities: No Calf Tenderness, Other (2+ bilateral LE pitting edema, wound vac to right thigh) Neurology: alert, oriented, follow commands Assessment Assessment 1. Acute respiratory failure secondary to PNA/ pleural effusion. improving, ID and pulmonary following 2. Chronic diastolic CHF; compensated EF on 04/2018 was at 40% due to RVR and sepsis and currently well recovered at 55% with normal WM. 3. Chronic AFIB: episodes of HR in the 40-50s otherwise rate controlled with mean HR in the 60-70s. 4. Hypertension; marginal BP. 5. Diabetes, II/HLP 6. H/o CVA with chronic dysphagia s/p PEG 7. Multiple chronic wounds 8. Metabolic encephalopathy/ dementia. Neuro following Recommendations 1. He was treated in recently with amiodarone for persistent RVR and this was prvided as a temporary solution given that his BP was low and EF was low as well. He has chronic AFIB and no mention of any ventricular arrhythmias. Preently no further indication of amiodarone. Continue metoprolol and will DC amiodarone. 2. Continue on eliquis. Titrate levophed. Will check dig level. Ultimately if rate controlled is further needed, if BP is adequate then may titrate up BB or utilize CCB. 3. No aggressive diuresis warranted at this time 4. Will follow along peripherally AMOS DENTON MD 07/18/18 1546: CARDIO Progress Notes Assessment Assessment Patient seen and examined. Agree with CURVE CLEANER's assessment and plan. Continue current treatment for acute respiratory failure secondary to pneumonia per pulmonary team Chronic diastolic heart failure well compensated 2-D echo showed normal LV systolic function Permanent atrial fibrillation rate controlled Agree with stopping amiodarone and continue eliquis for stroke prophylaxis FUNMILAYO WEST APRN Jul 18, 2018 10:08 AMOS DENTON MD Jul 18, 2018 15:46
[2018-07-18 10:44] LABS: DIG 1.1 ng/mL (0.9-2.0)
[2018-07-18] MEDS: LACTOBACILLUS RHAMNOSUS GG 1 CAPSULE. PO SCH ×2 (11:03→21:03)
[2018-07-18] MEDS: FERROUS SULFATE ORAL 300 MG/5 ML SOLUTION. PO SCH (11:03)
[2018-07-18] MEDS: APIXABAN 5 MG TABLET. PO SCH ×2 (11:03→21:03)
[2018-07-18] MEDS: MULTIVITAMINS,THERAPEUTIC 5 ML ORAL LIQUID. PO SCH ×2 (11:03→13:00)
[2018-07-18] MEDS: POLYETHYLENE GLYCOL 3350 17 GM PACKET. PO SCH ×2 (11:05→13:01)
[2018-07-18] MEDS: METOPROLOL TART IMMED RELEASE 25 MG TABLET. PO SCH ×2 (11:05→21:00)
[2018-07-18] MEDS: NYSTATIN 100,000 UNITS/ML 5 ML ORAL.SUSP. SWSW SCH ×4 (11:06→21:03)
--- NOTE | 2018-07-18 11:47 | EKG ---
[facility] [address] [place] [address] Test Date: 2018-07-18 Test Time: 11:41:14 Pat Name: ENRICO CARDONA Department: Room: 109 1 Gender: M [employer]: JOSEP : 1950 Requested By: FUNMILAYO WEST Order Number: [id number] Reading MD: Juan Carlos Tucker Measurements Intervals [place] Rate: 65 P: [place]: QRS: 61 QRSD: 98 T: 15 QT: 396 QTc: 417 Interpretive Statements ATRIAL FIBRILLATION LOW VOLTAGE INCOMPLETE RIGHT BUNDLE BRANCH BLOCK ABNORMAL ECG Electronically Signed On 07-20-2018 11:21:51 CDT by Juan Carlos Tucker
[2018-07-18] MEDS: INSULIN LISPRO 300 UNITS/3 ML INSULN.PEN. SQ SCH ×2 (14:54→19:44)
[2018-07-18] MEDS: VANCOMYCIN PER PHARMACY MC PRN (15:24)
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
[2018-07-18] MEDS: ATORVASTATIN CALCIUM 20 MG TABLET PO SCH (21:03)
[2018-07-18] MEDS: FINASTERIDE 5 MG TABLET. PO SCH (21:03)
[2018-07-18] MEDS: traZODone 50 MG TABLET. PO SCH (21:03)
[2018-07-18] MEDS: INSULIN GLARGINE 300 UNITS/3 ML INSULN.PEN. SQ SCH (21:04)
[2018-07-19] VITALS (19 sets, daily range): BP systolic 79–147; BP diastolic 39–79
[2018-07-19] MEDS: PIPERACILLIN/TAZOBACTAM 4.5 GM in IV NORMAL SALINE 100ML 100 ML IV SCH ×2 (05:48→12:00)
[2018-07-19 06:19] LABS: CALCIUM 8.3 mg/dL (8.5-10.1); CREATININE 1.1 mg/dL (0.7-1.3); GFR 66.8; POTASSIUM 4.1 mmol/L (3.5-5.1)
[2018-07-19] MEDS ORDERED: FUROSEMIDE 40 MG/4 ML VIAL. IVP ONE (06:45)
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
[2018-07-19] MEDS: IPRATRPIUM/ALBUTEROL 0.5/2.5MG 3 ML NEBU. NEB SCH ×4 (07:55→20:06)
--- NOTE | 2018-07-19 07:57 | PDOC ---
Infectious Disease Note Subjective Subjective pt is awake, speaking , on bipap ROS ROS no n/v/d/fever Vital Sign Vital Signs Vital Signs Date Time Temp Pulse Resp B/P (MAP) Pulse Ox O2 Delivery O2 Flow Rate FiO2 07/19/18 07:00 97.1 100 22 140/61 (87) 97 BiPAP/CPAP 97.1 07/19/18 05:00 2.0 Physical Exam PHYSICAL EXAM GENERAL: Awake gentleman not in distress VITAL SIGNS: stable HEENT: Pupils are round, reacting. No conjunctival lesion. No oral lesions. NECK: Supple, no JVD, no lymphadenopathy. LUNGS: Decreased breath sounds bilaterally. CARDIOVASCULAR: S1, S2 regular. No gallop or murmur. ABDOMEN: Soft, nontender, no organomegaly. EXTREMITIES: No edema or cyanosis. He has a very large defect on the right anterior thigh and the 90%-95% of the wound looks very clean and healthy red granulation tissue, only about 5%-10%, there is necrotic tissue. The patient has a sacrococcygeal decubitus with necrotic tissue and there are pressure changes on the scalp. Rest of skin exam is unremarkable. The patient does move all the extremities, Neurology, able to answer simple questions, Labs Lab Laboratory Tests Test 07/18/18 13:26 07/18/18 17:00 07/18/18 17:16 07/18/18 19:42 Glucose (Fingerstick) 262 mg/dL (70-99) 202 mg/dL (70-99) 197 mg/dL (70-99) Vancomycin Level Trough 30.0 mcg/mL (10.0-20.0) Vancomycin Last Dose Date 07/18/18 Vancomycin Last Dose Time 0026 Test 07/19/18 05:40 Sodium Level 145 mmol/L (136-145) Potassium Level 4.1 mmol/L (3.5-5.1) Chloride Level 109 mmol/L (98-107) Carbon Dioxide Level 29 mmol/L (21-32) Anion Gap 7 (6-14) Blood Urea Nitrogen 41 mg/dL (8-26) Creatinine 1.1 mg/dL (0.7-1.3) Estimated GFR (Cockcroft-Gault) 66.8 Glucose Level 210 mg/dL (70-99) Calcium Level 8.3 mg/dL (8.5-10.1) Thyroid Stimulating Hormone (TSH) 3.770 uIU/mL (0.358-3.74) Objective Assessment 1. Encephalopathy, unclear what the baseline is right now. 2. Bilateral pulmonary infiltrate pneumonia, healthcare facility associated pneumonia versus congestive heart failure versus combination of both. 3. Advanced dementia. 4. Very large right anterior thigh wound. 5. Sacrococcygeal wound, necrotic. 6. Pressure changes on the posterior scalp. Plan Plan of Care cont antibiotics,, d/c vanc cont supportive care cont wound care off load BRIAN العراقي MD Jul 19, 2018 07:57
[2018-07-19] MEDS: POLYETHYLENE GLYCOL 3350 17 GM PACKET. PO SCH (09:00)
[2018-07-19] MEDS: NYSTATIN 100,000 UNITS/ML 5 ML ORAL.SUSP. SWSW SCH ×2 (09:27→13:00)
[2018-07-19] MEDS: LACTOBACILLUS RHAMNOSUS GG 1 CAPSULE. PO SCH (09:27)
[2018-07-19] MEDS: METOPROLOL TART IMMED RELEASE 25 MG TABLET. PO SCH ×2 (09:27→21:00)
[2018-07-19] MEDS: INSULIN LISPRO 300 UNITS/3 ML INSULN.PEN. SQ SCH ×3 (09:33→20:00)
--- NOTE | 2018-07-19 10:18 | PDOC ---
PULMONARY PROGRESS NOTES Subjective PT MORE SOA THIS AM PLACED ON BIPAP Vitals Vital Signs Date Time Temp Pulse Resp B/P (MAP) Pulse Ox O2 Delivery O2 Flow Rate FiO2 07/19/18 10:00 86 22 89/60 (70) 97 BiPAP/CPAP 07/19/18 07:00 97.1 97.1 07/19/18 05:00 2.0 Lungs: Crackles Cardiovascular: S1, S2 Abdomen: Soft, Other (PEG) Neuro Exam: Alert Extremities: Other (EDEMA) Skin: Warm Labs Laboratory Tests Test 07/17/18 14:08 07/17/18 19:41 07/17/18 21:56 07/17/18 23:40 Glucose (Fingerstick) 284 mg/dL (70-99) 249 mg/dL (70-99) 274 mg/dL (70-99) Vancomycin Level Trough 24.4 mcg/mL (10.0-20.0) Vancomycin Last Dose Date Vancomycin Last Dose Time Test 07/18/18 05:47 07/18/18 13:26 07/18/18 17:00 07/18/18 17:16 White Blood Count 8.1 x10^3/uL (4.0-11.0) Red Blood Count 2.95 x10^6/uL (4.30-5.70) Hemoglobin 8.1 g/dL (13.0-17.5) Hematocrit 25.1 % (39.0-53.0) Mean Corpuscular Volume 85 fL (79-100) Mean Corpuscular Hemoglobin 28 pg (25-35) Mean Corpuscular Hemoglobin Concent 32 g/dL (31-37) Red Cell Distribution Width 22.3 % (11.5-14.5) Platelet Count 153 x10^3/uL (140-400) Prothrombin Time 19.0 SEC (11.7-14.0) Prothromb Time International Ratio 1.7 (0.8-1.1) Sodium Level 143 mmol/L (136-145) Potassium Level 4.6 mmol/L (3.5-5.1) Chloride Level 107 mmol/L (98-107) Carbon Dioxide Level 25 mmol/L (21-32) Anion Gap 11 (6-14) Blood Urea Nitrogen 43 mg/dL (8-26) Creatinine 1.1 mg/dL (0.7-1.3) Estimated GFR (Cockcroft-Gault) 66.8 BUN/Creatinine Ratio 39 (6-20) Glucose Level 259 mg/dL (70-99) Calcium Level 8.0 mg/dL (8.5-10.1) Total Bilirubin 0.6 mg/dL (0.2-1.0) Aspartate Amino Transf (AST/SGOT) 17 U/L (15-37) Alanine Aminotransferase (ALT/SGPT) 31 U/L (16-63) Alkaline Phosphatase 162 U/L (46-116) Total Protein 5.8 g/dL (6.4-8.2) Albumin 2.6 g/dL (3.4-5.0) Albumin/Globulin Ratio 0.8 (1.0-1.7) Digoxin Level 1.1 ng/mL (0.9-2.0) Digoxin Last Dose Date Unknown Digoxin Last Dose Time Unknown Glucose (Fingerstick) 262 mg/dL (70-99) 202 mg/dL (70-99) Vancomycin Level Trough 30.0 mcg/mL (10.0-20.0) Vancomycin Last Dose Date 07/18/18 Vancomycin Last Dose Time 0026 Test 07/18/18 19:42 07/19/18 05:40 07/19/18 09:30 Glucose (Fingerstick) 197 mg/dL (70-99) 205 mg/dL (70-99) Sodium Level 145 mmol/L (136-145) Potassium Level 4.1 mmol/L (3.5-5.1) Chloride Level 109 mmol/L (98-107) Carbon Dioxide Level 29 mmol/L (21-32) Anion Gap 7 (6-14) Blood Urea Nitrogen 41 mg/dL (8-26) Creatinine 1.1 mg/dL (0.7-1.3) Estimated GFR (Cockcroft-Gault) 66.8 Glucose Level 210 mg/dL (70-99) Calcium Level 8.3 mg/dL (8.5-10.1) Thyroid Stimulating Hormone (TSH) 3.770 uIU/mL (0.358-3.74) Laboratory Tests Test 07/18/18 13:26 07/18/18 17:00 07/18/18 17:16 07/18/18 19:42 Glucose (Fingerstick) 262 mg/dL (70-99) 202 mg/dL (70-99) 197 mg/dL (70-99) Vancomycin Level Trough 30.0 mcg/mL (10.0-20.0) Vancomycin Last Dose Date 07/18/18 Vancomycin Last Dose Time 0026 Test 07/19/18 05:40 07/19/18 09:30 Sodium Level 145 mmol/L (136-145) Potassium Level 4.1 mmol/L (3.5-5.1) Chloride Level 109 mmol/L (98-107) Carbon Dioxide Level 29 mmol/L (21-32) Anion Gap 7 (6-14) Blood Urea Nitrogen 41 mg/dL (8-26) Creatinine 1.1 mg/dL (0.7-1.3) Estimated GFR (Cockcroft-Gault) 66.8 Glucose Level 210 mg/dL (70-99) Calcium Level 8.3 mg/dL (8.5-10.1) Thyroid Stimulating Hormone (TSH) 3.770 uIU/mL (0.358-3.74) Glucose (Fingerstick) 205 mg/dL (70-99) Medications Active Scripts Medications Dose Route/Sig Max Daily Dose Days Date Category Digoxin 125 Mcg Tablet 125 Mcg PO QHS 07/16/18 Reported Ultra Nancy Plus Capsule (Lactobac/Bifidobac/Glob Pr Con) 1 Each Capsule 1 Each PO BID 07/16/18 Reported Eliquis (Apixaban) 5 Mg Tablet 5 Mg PO BID 07/16/18 Reported Atorvastatin Calcium 20 Mg Tablet 20 Mg PO HS 07/16/18 Reported Tramadol Hcl 50 Mg Tablet 50 Mg PO Q6HRS PRN 07/16/18 Reported [place]am-3 (Hiram-3 Fatty Acids) 1,000 Mg Capsule 2,000 Mg PO 07/16/18 Reported Amiodarone Hcl 200 Mg Tablet 400 Mg PO BID 07/16/18 Reported Acetaminophen Oral Liquid (Acetaminophen) 650 Mg/20.3 Ml Solution 650 Mg PO PRN Q6HRS 07/16/18 Reported Ferrous Sulfate 220 Mg/5 Ml Elixir 5 Ml PO DAILY 07/16/18 Reported Melatonin 3 Mg Tablet 6 Mg PO PRN QHS 07/16/18 Reported Metoprolol Tartrate 25 Mg Tablet 25 Mg PO BID 07/16/18 Reported Doxazosin Mesylate 4 Mg Tablet 4 Mg PO DAILY 07/16/18 Reported Novolog Flexpen (Insulin Aspart) 100 Unit/1 Ml Insuln.pen 20 Unit SQ TID@0800,1400,2000 07/16/18 Reported Lantus Solostar (Insulin Glargine,Hum.rec.anlog) 100 Unit/1 Ml Insuln.pen 40 Unit SQ QHS 07/16/18 Reported Nystatin 100,000 Unit/1 Ml Oral.susp 5 Ml PO QID 07/16/18 Reported Finasteride 5 Mg Tablet 5 Mg PO QHS 07/16/18 Reported Trazodone Hcl 50 Mg Tablet 50 Mg PO HS 07/16/18 Reported Polyethylene Glycol 3350 255 Gm Powder 34 Gm PO BID 07/16/18 Reported Certa Jordan Liquid (Multivits W-Min/Ferrous Gluc) 9 Mg/15 Ml Liquid 9 Mg PO DAILY 07/16/18 Reported Comments CXR REVIEWED NOT MUCH DIFFERENT LLL INFILTRATE EFFUSION Impression . IMPRESSION: 1. Acute hypoxic respiratory failure secondary to extensive pneumonia. 2. Abnormal CT chest with bilateral consolidation consistent with pneumonia and a small pleural effusion 3. Anemia. 4. Hypotension/Sepsis 5. No significant history of tobacco use. 6. History of prior cerebrovascular accident with dysphagia and chronic PEG tube placement. 7. Large right thigh wounds. <Conclusion> The left ventricular systolic function is normal. The Ejection Fraction is 55-60%. There is normal LV segmental wall motion. Trace to mild mitral regurgitation. Mild tricuspid regurgitation. The PA pressure was estimated at 40 mmHg. There is no evidence of significant pericardial effusion. Plan . SURGERY ON HOLD, FAMILY WISHES TO PROCEED WITH PALLITIVE CARE/ HOSPICE WAITING FOR SON TO ARRIVE PALLIATIVE CARE NOT APPRECIATED DR FIELDS NOTE NOTED BIPAP CONTINUE ANTIBX REPEAT CXR REVIEWED DVT PROPH PEG TUBE FEEDING NPO ECHO REPORT NOTED CCT 30MIN SPOKE WITH AT BEDSIDE LLUVIA TURK MD Jul 19, 2018 10:18
--- NOTE | 2018-07-19 11:56 | PDOC ---
PROGRESS NOTES Subjective Subjective pt appears lethargic, not conversant; nurse states some issues with O2, given lasix, and may need to go back on bipap Objective Objective Vital Signs Date Time Temp Pulse Resp B/P (MAP) Pulse Ox O2 Delivery O2 Flow Rate FiO2 07/19/18 11:36 86 Nasal Cannula 2.0 07/19/18 11:00 87 24 119/53 (75) 07/19/18 07:00 97.1 97.1 Intake and Output 07/19/18 07:00 Intake Total 5562 ml Output Total 1079 ml Balance 4483 ml Intake IV Total 552 ml Tube Feeding 4160 ml Other 850 ml Output Urine Total 1079 ml Physical Exam Abdomen: No tenderness General: Other (lethargic) Assessment Assessment Pneumonia, sacral decubitus Plan Plan of Care Kandis was held, patient was tentatively on OR schedule tomorrow, however some concerns regarding pulmonary status for general anesthesia; Palliative care consulted; will postpone any surgeries until full evaluation and decisions regarding future goals of treatment Comment Review of Relevant I have reviewed the following items kirsten (where applicable) has been applied. Labs Laboratory Tests Test 07/17/18 14:08 07/17/18 19:41 07/17/18 21:56 07/17/18 23:40 Glucose (Fingerstick) 284 mg/dL (70-99) 249 mg/dL (70-99) 274 mg/dL (70-99) Vancomycin Level Trough 24.4 mcg/mL (10.0-20.0) Vancomycin Last Dose Date Vancomycin Last Dose Time Test 07/18/18 05:47 07/18/18 13:26 07/18/18 17:00 07/18/18 17:16 White Blood Count 8.1 x10^3/uL (4.0-11.0) Red Blood Count 2.95 x10^6/uL (4.30-5.70) Hemoglobin 8.1 g/dL (13.0-17.5) Hematocrit 25.1 % (39.0-53.0) Mean Corpuscular Volume 85 fL (79-100) Mean Corpuscular Hemoglobin 28 pg (25-35) Mean Corpuscular Hemoglobin Concent 32 g/dL (31-37) Red Cell Distribution Width 22.3 % (11.5-14.5) Platelet Count 153 x10^3/uL (140-400) Prothrombin Time 19.0 SEC (11.7-14.0) Prothromb Time International Ratio 1.7 (0.8-1.1) Sodium Level 143 mmol/L (136-145) Potassium Level 4.6 mmol/L (3.5-5.1) Chloride Level 107 mmol/L (98-107) Carbon Dioxide Level 25 mmol/L (21-32) Anion Gap 11 (6-14) Blood Urea Nitrogen 43 mg/dL (8-26) Creatinine 1.1 mg/dL (0.7-1.3) Estimated GFR (Cockcroft-Gault) 66.8 BUN/Creatinine Ratio 39 (6-20) Glucose Level 259 mg/dL (70-99) Calcium Level 8.0 mg/dL (8.5-10.1) Total Bilirubin 0.6 mg/dL (0.2-1.0) Aspartate Amino Transf (AST/SGOT) 17 U/L (15-37) Alanine Aminotransferase (ALT/SGPT) 31 U/L (16-63) Alkaline Phosphatase 162 U/L (46-116) Total Protein 5.8 g/dL (6.4-8.2) Albumin 2.6 g/dL (3.4-5.0) Albumin/Globulin Ratio 0.8 (1.0-1.7) Digoxin Level 1.1 ng/mL (0.9-2.0) Digoxin Last Dose Date Unknown Digoxin Last Dose Time Unknown Glucose (Fingerstick) 262 mg/dL (70-99) 202 mg/dL (70-99) Vancomycin Level Trough 30.0 mcg/mL (10.0-20.0) Vancomycin Last Dose Date 07/18/18 Vancomycin Last Dose Time 0026 Test 07/18/18 19:42 07/19/18 05:40 07/19/18 09:30 Glucose (Fingerstick) 197 mg/dL (70-99) 205 mg/dL (70-99) Sodium Level 145 mmol/L (136-145) Potassium Level 4.1 mmol/L (3.5-5.1) Chloride Level 109 mmol/L (98-107) Carbon Dioxide Level 29 mmol/L (21-32) Anion Gap 7 (6-14) Blood Urea Nitrogen 41 mg/dL (8-26) Creatinine 1.1 mg/dL (0.7-1.3) Estimated GFR (Cockcroft-Gault) 66.8 Glucose Level 210 mg/dL (70-99) Calcium Level 8.3 mg/dL (8.5-10.1) Thyroid Stimulating Hormone (TSH) 3.770 uIU/mL (0.358-3.74) Laboratory Tests Test 07/18/18 13:26 07/18/18 17:00 07/18/18 17:16 07/18/18 19:42 Glucose (Fingerstick) 262 mg/dL (70-99) 202 mg/dL (70-99) 197 mg/dL (70-99) Vancomycin Level Trough 30.0 mcg/mL (10.0-20.0) Vancomycin Last Dose Date 07/18/18 Vancomycin Last Dose Time 0026 Test 07/19/18 05:40 07/19/18 09:30 Sodium Level 145 mmol/L (136-145) Potassium Level 4.1 mmol/L (3.5-5.1) Chloride Level 109 mmol/L (98-107) Carbon Dioxide Level 29 mmol/L (21-32) Anion Gap 7 (6-14) Blood Urea Nitrogen 41 mg/dL (8-26) Creatinine 1.1 mg/dL (0.7-1.3) Estimated GFR (Cockcroft-Gault) 66.8 Glucose Level 210 mg/dL (70-99) Calcium Level 8.3 mg/dL (8.5-10.1) Thyroid Stimulating Hormone (TSH) 3.770 uIU/mL (0.358-3.74) Glucose (Fingerstick) 205 mg/dL (70-99) Medications Current Medications Vancomycin HCl (Vanco Per Pharmacy) 1 each PRN DAILY PRN MC SEE COMMENTS Last administered on 07/18/18at 15:24; Start 07/16/18 at 14:15; Stop 07/19/18 at 07 :56; Status DC Piperacillin Sod/ Tazobactam Sod (Zosyn Per Pharmacy) 1 each PRN DAILY PRN MC SEE COMMENTS; Start 07/16/18 at 14:15 Piperacillin Sod/ Tazobactam Sod 4.5 gm/Sodium Chloride 100 ml @ 200 mls/hr Q6HRS IV Last administered on 07/19/18at 05:48; Start 07/16/18 at 18:00 Vancomycin HCl 2 gm/Sodium Chloride 500 ml @ 250 mls/hr Q18H IV Last administered on 07/18/18at 00:26; Start 07/17/18 at 06:00; Stop 07/18/18 at 18 :34; Status DC Vancomycin HCl (Vancomycin Trough Level) 1 each 1X ONCE MC Last administered on 07/18/18at 17:30; Start 07/18/18 at 17:30; Stop 07/18/18 at 17:31; Status DC Albuterol/ Ipratropium (Duoneb) 3 ml RTQID NEB Last administered on 07/19/18at 11:36; Start 07/16/18 at 20:00 Albuterol Sulfate (Ventolin Neb Soln) 2.5 mg PRN Q4HRS PRN NEB SHORTNESS OF BREATH Last administered on 07/19/18at 04:57; Start 07/16/18 at 17:45 Acetaminophen (Tylenol) 650 mg PRN Q6HRS PRN PO MILD PAIN / TEMP; Start at 18:15 Amiodarone HCl (Cordarone) 400 mg BID PO Last administered on 07/17/18at 20:32 ; Start 07/16/18 at 21:00; Stop 07/18/18 at 09:55; Status DC Apixaban (Eliquis) 5 mg BID PO Last administered on 07/18/18at 21:03; Start at 21:00; Stop 07/19/18 at 08:10; Status DC Atorvastatin Calcium (Lipitor) 20 mg HS PO Last administered on 07/18/18at 21: 03; Start 07/16/18 at 21:00 Doxazosin Mesylate (Cardura) 4 mg DAILY PO Last administered on 07/18/18at 11: 06; Start 07/16/18 at 19:00 Finasteride (Proscar) 5 mg QHS PO Last administered on 07/18/18at 21:03; Start 07/16/18 at 21:00 Insulin Glargine (Lantus) 40 units QHS SQ Last administered on 07/18/18at 21:04 ; Start 07/16/18 at 21:00 Metoprolol Tartrate (Lopressor) 25 mg BID PO Last administered on 07/19/18at 09 :27; Start 07/16/18 at 21:00 Polyethylene Glycol (miraLAX PACKET) 34 gm BID PO Last administered on 13:01; Start 07/16/18 at 21:00 Trazodone HCl (Desyrel) 50 mg HS PO Last administered on 07/18/18 21:03; Start 07/16/18 at 21:00 Ferrous Sulfate (Iron Oral Solution) 300 mg DAILY PO Last administered on 07/18at 11:03; Start 07/16/18 at 19:00 Insulin Human Lispro (HumaLOG) 20 units TID@0800,1400,2000 SQ Last administered on 07/19/18 09:33; Start 07/16/18 at 20:00 Lactobacillus Rhamnosus (Culturelle) 1 cap BID PO Last administered on 09:27; Start 07/16/18 at 21:00 Non-Formulary Medication (Melatonin ) 6 mg PRN QHS PO ; Start 07/16/18 at 18: 15; Status UNV Multivitamins (Thera-Plus Oral Liquid) 5 ml DAILY PO Last administered on 07/18at 13:00; Start 07/16/18 at 19:00 Nystatin (Nystatin Oral Susp) 5 ml [id number] Last administered on 09:27; Start 07/16/18 at 21:00 Info (Anti-Coagulation Monitoring By Pharmacy) 1 each PRN DAILY PRN MC SEE COMMENTS Last administered on 07/17/18at 10:51; Start 07/17/18 at 09:15 Norepinephrine Bitartrate 250 ml @ 1.875 mls/ hr CONT PRN IV SEE I/O RECORD Last administered on 07/17/18at 17:43; Start 07/17/18 at 09:45 Albumin Human 500 ml @ 125 mls/hr 1X ONCE IV Last administered on 07/17/18at 11:22; Start 07/17/18 at 10:45; Stop 07/17/18 at 14:44; Status DC Albumin Human 250 ml @ 62.5 mls/hr 1X ONCE IV Last administered on at 14:07; Start 07/17/18 at 14:00; Stop 07/17/18 at 17:59; Status DC Furosemide (Lasix) 40 mg 1X ONCE IVP Last administered on 07/19/18at 06:44; Start 07/19/18 at 06:45; Stop 07/19/18 at 06:46; Status DC Active Scripts Active Reported Digoxin 125 Mcg Tablet 125 Mcg PO QHS Ultra Nancy Plus Capsule (Lactobac/Bifidobac/Glob Pr Con) 1 Each Capsule 1 Each PO BID Eliquis (Apixaban) 5 Mg Tablet 5 Mg PO BID Atorvastatin Calcium 20 Mg Tablet 20 Mg PO HS Tramadol Hcl 50 Mg Tablet 50 Mg PO Q6HRS PRN [place]-3 ([place]-3 Fatty Acids) 1,000 Mg Capsule 2,000 Mg PO Amiodarone Hcl 200 Mg Tablet 400 Mg PO BID Acetaminophen Oral Liquid (Acetaminophen) 650 Mg/20.3 Ml Solution 650 Mg PO PRN Q6HRS Ferrous Sulfate 220 Mg/5 Ml Elixir 5 Ml PO DAILY Melatonin 3 Mg Tablet 6 Mg PO PRN QHS Metoprolol Tartrate 25 Mg Tablet 25 Mg PO BID Doxazosin Mesylate 4 Mg Tablet 4 Mg PO DAILY Novolog Flexpen (Insulin Aspart) 100 Unit/1 Ml Insuln.pen 20 Unit SQ TID@0800, 1400,2000 Lantus Solostar (Insulin Glargine,Hum.rec.anlog) 100 Unit/1 Ml Insuln.pen 40 Unit SQ QHS Nystatin 100,000 Unit/1 Ml Oral.susp 5 Ml PO QID Finasteride 5 Mg Tablet 5 Mg PO QHS Trazodone Hcl 50 Mg Tablet 50 Mg PO HS Polyethylene Glycol 3350 255 Gm Powder 34 Gm PO BID Certa Jordan Liquid (Multivits W-Min/Ferrous Gluc) 9 Mg/15 Ml Liquid 9 Mg PO DAILY Vitals/I & O Vital Sign - Last 24 Hours 07/18/18 07/18/18 07/18/18 07/18/18 12:00 12:00 12:04 13:00 Temp 98.0 98.0 Pulse 71 Resp 27 15 B/P (MAP) 113/58 (76) 140/52 (81) Pulse Ox 99 98 100 O2 Delivery Nasal Cannula Nasal Cannula Nasal Cannula Nasal Cannula O2 Flow Rate 2.0 3.0 4.0 2.0 07/18/18 07/18/18 07/18/18 07/18/18 14:00 15:00 16:00 16:00 Temp 97.9 97.9 Pulse 80 Resp 18 B/P (MAP) 133/55 (81) 126/52 (76) 112/49 (70) Pulse Ox 100 100 100 O2 Delivery Nasal Cannula Nasal Cannula Nasal Cannula Nasal Cannula O2 Flow Rate 2.0 2.0 2.0 3.0 07/18/18 07/18/18 07/18/18 07/18/18 16:04 17:00 18:00 19:00 Pulse 78 73 81 Resp 30 30 B/P (MAP) 115/49 (71) 109/53 (71) Pulse Ox 100 99 O2 Delivery Nasal Cannula Nasal Cannula Nasal Cannula Nasal Cannula O2 Flow Rate 3.0 2.0 2.0 2.0 07/18/18 07/18/18 07/18/18 07/18/18 19:33 20:00 20:00 21:00 Temp 97.2 97.2 Pulse 75 90 Resp 13 B/P (MAP) 114/44 (67) 136/59 Pulse Ox 98 100 O2 Delivery Nasal Cannula Nasal Cannula Nasal Cannula O2 Flow Rate 2.0 2.0 2.0 07/18/18 07/18/18 07/18/18 07/19/18 21:00 22:00 23:00 00:00 Pulse 81 76 77 Resp 28 B/P (MAP) 136/59 (84) 128/64 (85) 138/58 (84) Pulse Ox 100 100 98 O2 Delivery Nasal Cannula Nasal Cannula Nasal Cannula Nasal Cannula O2 Flow Rate 2.0 2.0 2.0 2.0 07/19/18 07/19/18 07/19/18 07/19/18 00:00 01:00 02:00 03:00 Temp 97.3 97.3 Pulse 77 76 78 78 Resp 18 26 B/P (MAP) 121/57 (78) 137/61 (86) 112/48 (69) 112/48 (69) Pulse Ox 100 99 98 98 O2 Delivery Nasal Cannula Nasal Cannula Nasal Cannula Nasal Cannula O2 Flow Rate 2.0 2.0 2.0 2.0 07/19/18 07/19/18 07/19/18 07/19/18 04:00 04:00 05:00 06:00 Temp 97.5 97.5 Pulse 88 85 97 Resp 23 22 B/P (MAP) 127/51 (76) 144/48 (80) 139/61 (87) Pulse Ox 95 91 94 O2 Delivery Mask Simple Mask Nasal Cannula BiPAP/CPAP O2 Flow Rate 10.0 10.0 2.0 07/19/18 07/19/18 07/19/18 07/19/18 07:00 07:55 08:00 08:00 Temp 97.1 97.1 Pulse 100 97 Resp 22 22 B/P (MAP) 140/61 (87) 147/61 (89) Pulse Ox 97 99 96 O2 Delivery BiPAP/CPAP BiPAP/CPAP BiPAP/CPAP Bi-pap 07/19/18 07/19/18 07/19/18 07/19/18 08:57 09:00 09:27 10:00 Pulse 90 100 86 Resp 22 22 B/P (MAP) 133/52 (79) 140/61 89/60 (70) Pulse Ox 97 97 97 O2 Delivery BiPAP/CPAP BiPAP/CPAP BiPAP/CPAP 07/19/18 07/19/18 11:00 11:36 Pulse 87 Resp 24 B/P (MAP) 119/53 (75) Pulse Ox 94 86 O2 Delivery Nasal Cannula Nasal Cannula O2 Flow Rate 3.0 2.0 Intake and Output 07/18/18 07/18/18 07/19/18 15:00 23:00 07:00 Intake Total 2180 ml 1240 ml 2142 ml Output Total 525 ml 279 ml 275 ml Balance 1655 ml 961 ml 1867 ml JUDAH FIELDS MD Jul 19, 2018 11:56
--- NOTE | 2018-07-19 13:12 | PN ---
DATE: 07/19/2018 SUBJECTIVE: The patient is resting, slightly propped up in bed, no apparent distress, awake, alert, denied any complaint. He apparently was on nasal cannula overnight and became tired this morning and he was put on BiPAP. He is off the Levophed and his blood pressure is stable. He was seen by the surgical team; however, he is on Eliquis and it was stopped today for surgical debridement of his bilateral gluteal decubitus ulcer. PHYSICAL EXAMINATION: GENERAL: When I examined him this morning, he looked pale, but no jaundice or cyanosis. No lymphadenopathy, no thyromegaly. No jugular venous distension. No limb edema. VITAL SIGNS: Heart rate was 100, blood pressure was 125/80, temperature was 97.1, respiratory rate was 22 and oxygen saturation was 97%. HEAD, EYES, EARS, NOSE AND THROAT: Showed normocephalic, atraumatic. NECK: Supple. HEART: Showed normal first and second sounds. No gallop, rub or murmur. CHEST: Clear to auscultation. No crepitation or rhonchi. ABDOMEN: Distended, soft with gastrostomy tube in place. No tenderness. No guarding or rigidity. No organomegaly with hernial orifices intact. Bowel sounds normal. NEUROLOGIC: He was awake, alert, responding appropriately, has right-sided hemiplegia and dysphagia. SKIN: He has a large wound in the anterior aspect of the right thigh covered with wound VAC and assisted closure device. He has an indwelling Kenney catheter and rectal tube. He has also bilateral gluteal decubitus ulcer. His intake over the last 24 hours was 4900, output was 1270. LABORATORY DATA: As of this morning, his white cell count was 8100, hemoglobin 8, hematocrit 25, MCV 85 and platelet count of 153,000. His chemistry this morning showed serum sodium of 41, potassium 4.1, chloride 109, bicarbonate 29, anion gap of 7, BUN 41, creatinine 1.1, estimated GFR was 66 mL per minute, his blood sugar was 210, calcium was 8.3. TSH was 3.77. His vitamin B12 was 679 pg/mL. ASSESSMENT: 1. Acute on chronic hypoxic hypercapnic respiratory failure, resolved. 2. Bilateral lung infiltrate, likely healthcare-associated pneumonia for which he is on IV antibiotic in the form of vancomycin and Zosyn. 3. Left middle cerebral artery territory infarct with right-sided hemiplegia, aphasia and dysphagia. He is on tube feeding through his percutaneous endoscopic gastrostomy tube. 4. History of right thigh abscess, status post incision and drainage. There are large wounds in both gluteal area with eschar and also in back of his head. 5. Type 2 diabetes that seems to be much better controlled. 6. Anemia of chronic kidney disease. 7. Morbid obesity. 8. Hyperlipidemia. PLAN: To continue with nutritional support. Continue with IV antibiotic. I discontinued his apixaban and hopefully, the patient will be able to have a debridement done on Tuesday morning. NICOL LALA MD DR: HARJINDER/roni JOB#: [id number] / [id number]
--- NOTE | 2018-07-19 13:22 | PDOC2 ---
PALLIATIVE CARE Palliative Care Note Palliative Care Consult requested by Dr. Baxter to address goals of care. Medical Assessment per medical record 1. Acute on chronic hypoxic hypercapnic respiratory failure. 2. Bilateral lung infiltrate, likely healthcare-associated pneumonia for which he is on IV antibiotic in the form of vancomycin and Zosyn. 3. Left middle cerebral artery territory infarct with right-sided hemiplegia, aphasia and dysphagia. He is on tube feeding through his percutaneous endoscopic gastrostomy tube. 4. History of right thigh abscess, status post incision and drainage. 5. There are large wounds on both gluteal area with eschar, also back of his head. 6. Type 2 diabetes mellitus, suboptimally controlled. 7. Anemia of chronic kidney disease, morbid obesity, hyperlipidemia. Code Status: DNR/DNI Patient restless. Does not follow commands. Off BiPap now AD on chart reviewed. Spoke with son Pino. States he is DPOA( confirmed on POA document). His mother Janet is POA but per son has dementia and can not make decisions. Reviewed medical condition as above. 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 Pino states they have spoke with staff at [facility] in [place] about Hospice. Pino would like to proceed with Hospice after he speaks with his mother this evening. Discussed debridement of wounds scheduled. Pino wants to focus on his father' s comfort and not do any more procedures Spoke with Amanda AMOR and Lulu FARAH who will assist with discharge plans. VICENTE JOHN Jul 19, 2018 13:22
--- NOTE | 2018-07-19 14:17 | PDOC ---
PROGRESS NOTES Assessment Assessment Metabolic encephalopathy. Respiratory failure. Pneumonia. Pulmonary effusion. Mediastinal lymphadenopathy. AFib. CHF. DM. HTN. Right thigh abscess. Peripheral neuropathy. Old gun shunt wounds likely. Aphasia, chronic. 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 RECOMMENDATIONS/PLAN:. Palliative care per family's decision. HISTORY OF THE PRESENT ILLNESS: This is a 69-year-old male patient presented was brought to [facility] from outside facility due to altered mental status with the respiratory failure. No focalized sensory or motor deficits reported. PAST MEDICAL HISTORY: Atrial fibrillation Methicillin-resistant Staphylococcus aureus infection. Acute systolic congestive heart failure. Acute respiratory failure. Cutaneous abscess of the right thigh, status post incision and drainage. Acute kidney failure. Anemia of chronic disease. Diabetes with hyperglycemia. Obesity Hyperlipidemia. Chronic hyponatremia Hypertension. Muscle weakness, difficulty walking. 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 PAST SURGICAL HISTORY: Percutaneous endoscopic gastrostomy tube placement as well as incision and drainage of the abscess in his right thigh. The patient is aphasic and does not give any useful information. ALLERGIES: METFORMIN AND PIOGLITAZONE. FAMILY HISTORY: Unobtainable. SOCIAL HISTORY: He is a resident at [facility]. REVIEW OF SYSTEMS: Unobtainable. REVIEW OF SYSTEMS: Refer to PMH and PSH. PHYSICAL EXAMINATION: General appearance is in subacute distress. HEENT: Normocephalic and nontraumatic. Eyes, nose, ears, and throat are unremarkable. Neck is supple. No lymphadenopathy. No crepitus. Cardiovascular: S1, S2, regular rate and rhythm. Pulmonary: Breathing sounds decreased to auscultation bilaterally. Abdomen: Bowel sounds are positive. Extremities: No rash, lesions, or edema. No restriction of range of motion NEUROLOGICAL EXAMINATION: Drowsiness. Not oriented to time, place but may know person. PERRL. EOMI. CN: no acute focal findings. Muscle tone: fluctuated. Right side increased from old CVA. Muscle strength: 4- UE, 1+ LE. DTR: 1+UE, 0 at knee. Plantar reflex: Neutral response bilaterally Gait: not able to walk this time. Sensory exam: Withdrawal response to stimuli. Not able to access cerebellar signs. F-T-N test not performed due to not follow commands. Objective Objective Vital Signs Date Time Temp Pulse Resp B/P (MAP) Pulse Ox O2 Delivery O2 Flow Rate FiO2 07/19/18 14:00 83 24 99/56 (70) 97 BiPAP/CPAP 07/19/18 12:00 98.2 98.2 07/19/18 11:36 2.0 Intake and Output 07/19/18 07:00 Intake Total 5562 ml Output Total 1079 ml Balance 4483 ml Intake IV Total 552 ml Tube Feeding 4160 ml Other 850 ml Output Urine Total 1079 ml Vitals Signs Vitals VS - Last 72 Hours, by Label Date Time Temp Pulse Resp B/P (MAP) Pulse Ox O2 Delivery O2 Flow Rate FiO2 07/19/18 14:00 83 24 99/56 (70) 97 BiPAP/CPAP 07/19/18 13:45 95 BiPAP/CPAP 07/19/18 13:00 85 24 79/39 (52) 97 BiPAP/CPAP 07/19/18 12:00 Bi-pap 07/19/18 12:00 98.2 87 24 119/53 (75) 97 BiPAP/CPAP 98.2 07/19/18 11:36 86 Nasal Cannula 2.0 07/19/18 11:00 87 24 119/53 (75) 94 Nasal Cannula 3.0 07/19/18 10:00 86 22 89/60 (70) 97 BiPAP/CPAP 07/19/18 09:27 100 140/61 07/19/18 09:00 90 22 133/52 (79) 97 BiPAP/CPAP 07/19/18 08:57 97 BiPAP/CPAP 07/19/18 08:00 Bi-pap 07/19/18 08:00 97 22 147/61 (89) 96 BiPAP/CPAP 07/19/18 07:55 99 BiPAP/CPAP 07/19/18 07:00 97.1 100 22 140/61 (87) 97 BiPAP/CPAP 97.1 07/19/18 06:00 97 22 139/61 (87) 94 BiPAP/CPAP 07/19/18 05:00 85 23 144/48 (80) 91 Nasal Cannula 2.0 07/19/18 04:00 97.5 88 25 127/51 (76) 95 Simple Mask 10.0 97.5 07/19/18 04:00 Mask 10.0 07/19/18 03:00 78 26 112/48 (69) 98 Nasal Cannula 2.0 07/19/18 02:00 78 26 112/48 (69) 98 Nasal Cannula 2.0 07/19/18 01:00 76 23 137/61 (86) 99 Nasal Cannula 2.0 07/19/18 00:00 97.3 77 18 121/57 (78) 100 Nasal Cannula 2.0 97.3 07/19/18 00:00 Nasal Cannula 2.0 07/18/18 23:00 77 28 138/58 (84) 98 Nasal Cannula 2.0 07/18/18 22:00 76 28 128/64 (85) 100 Nasal Cannula 2.0 07/18/18 21:00 81 21 136/59 (84) 100 Nasal Cannula 2.0 07/18/18 21:00 90 136/59 07/18/18 20:00 Nasal Cannula 2.0 07/18/18 20:00 97.2 75 13 114/44 (67) 100 Nasal Cannula 2.0 97.2 07/18/18 19:33 98 Nasal Cannula 2.0 07/18/18 19:00 81 30 109/53 (71) 99 Nasal Cannula 2.0 07/18/18 18:00 73 26 115/49 (71) Nasal Cannula 2.0 07/18/18 17:00 78 30 Nasal Cannula 2.0 07/18/18 16:04 100 Nasal Cannula 3.0 07/18/18 16:00 Nasal Cannula 3.0 07/18/18 16:00 97.9 18 112/49 (70) 100 Nasal Cannula 2.0 97.9 07/18/18 15:00 28 126/52 (76) 100 Nasal Cannula 2.0 07/18/18 14:00 80 20 133/55 (81) 100 Nasal Cannula 2.0 07/18/18 13:00 15 140/52 (81) 100 Nasal Cannula 2.0 07/18/18 12:04 98 Nasal Cannula 4.0 07/18/18 12:00 Nasal Cannula 3.0 07/18/18 12:00 98.0 71 27 113/58 (76) 99 Nasal Cannula 2.0 98.0 07/18/18 11:06 60 107/58 07/18/18 11:05 67 108/72 07/18/18 11:00 62 26 105/48 (67) 99 Nasal Cannula 2.0 07/18/18 10:00 71 26 100 Nasal Cannula 2.0 07/18/18 09:00 72 27 100 Nasal Cannula 2.0 07/18/18 09:00 68 98/59 07/18/18 08:00 Nasal Cannula 3.0 07/18/18 08:00 97.8 68 30 98/64 (75) 100 Nasal Cannula 2.0 97.8 07/18/18 07:51 91 Nasal Cannula 4.0 07/18/18 07:00 62 30 97/60 (72) Nasal Cannula 2.0 Laboratory Laboratory Laboratory Tests Test 07/18/18 17:00 07/18/18 17:16 07/18/18 19:42 07/19/18 05:40 Vancomycin Level Trough 30.0 mcg/mL (10.0-20.0) Vancomycin Last Dose Date 07/18/18 Vancomycin Last Dose Time 0026 Glucose (Fingerstick) 202 mg/dL (70-99) 197 mg/dL (70-99) Sodium Level 145 mmol/L (136-145) Potassium Level 4.1 mmol/L (3.5-5.1) Chloride Level 109 mmol/L (98-107) Carbon Dioxide Level 29 mmol/L (21-32) Anion Gap 7 (6-14) Blood Urea Nitrogen 41 mg/dL (8-26) Creatinine 1.1 mg/dL (0.7-1.3) Estimated GFR (Cockcroft-Gault) 66.8 Glucose Level 210 mg/dL (70-99) Calcium Level 8.3 mg/dL (8.5-10.1) Thyroid Stimulating Hormone (TSH) 3.770 uIU/mL (0.358-3.74) Test 07/19/18 09:30 Glucose (Fingerstick) 205 mg/dL (70-99) Medication Medications Current Medications Furosemide (Lasix) 40 mg 1X ONCE IVP Last administered on 07/19/18at 06:44; Start 07/19/18 at 06:45; Stop 07/19/18 at 06:46; Status DC Vancomycin HCl (Vancomycin Trough Level) 1 each 1X ONCE MC Last administered on 07/18/18at 17:30; Start 07/18/18 at 17:30; Stop 07/18/18 at 17:31; Status DC Comment Review of Relevant I have reviewed the following items kirsten (where applicable) has been applied. SHYANN OLIVAREZ MD Jul 19, 2018 14:17
--- NOTE | 2018-07-19 14:53 | PDOC2 ---
PALLIATIVE CARE Palliative Care Note Palliative Care Patient with periods of hypotension. Spoke with , granddaughter Gabriel. Discussed Hospice. does not want her to suffer. She has spoke with her son Gabriel Called son Gabriel. Family in agreement to continue with comfort care. No medications for hypotension, procedures, x-rays, labs. VICENTE JOHN Jul 19, 2018 14:53
[2018-07-19] MEDS ORDERED: MORPHINE SULFATE 4 MG/ML VIAL. IV PRN (15:30)
[2018-07-19] MEDS: FINASTERIDE 5 MG TABLET. PO SCH (21:00)
[2018-07-19] MEDS: traZODone 50 MG TABLET. PO SCH (21:00)
[2018-07-19] MEDS: INSULIN GLARGINE 300 UNITS/3 ML INSULN.PEN. SQ SCH (21:00)
[2018-07-19] MEDS: MORPHINE SULFATE 2 MG/ML VIAL. IV PRN (22:06)
[2018-07-20 03:24] VITALS: BP 126/84
[2018-07-20] MEDS: IPRATRPIUM/ALBUTEROL 0.5/2.5MG 3 ML NEBU. NEB SCH ×2 (07:05→10:35)
[2018-07-20 07:42] VITALS: BP 137/70
[2018-07-20] MEDS: DOXAZOSIN MESYLATE 4 MG TABLET. PO SCH (08:43)
[2018-07-20] MEDS: METOPROLOL TART IMMED RELEASE 25 MG TABLET. PO SCH (08:43)
--- NOTE | 2018-07-20 09:57 | PDOC ---
PULMONARY PROGRESS NOTES Subjective PT MORE SOA THIS AM PLACED ON BIPAP Vitals Vital Signs Date Time Temp Pulse Resp B/P (MAP) Pulse Ox O2 Delivery O2 Flow Rate FiO2 07/20/18 08:43 84 137/70 07/20/18 07:42 99.1 22 99 BiPAP/CPAP 2.0 99.1 Lungs: Crackles Cardiovascular: S1, S2 Abdomen: Soft, Other (PEG) Neuro Exam: Alert Extremities: Other (EDEMA) Skin: Warm Labs Laboratory Tests Test 07/18/18 13:26 07/18/18 17:00 07/18/18 17:16 07/18/18 19:42 Glucose (Fingerstick) 262 mg/dL (70-99) 202 mg/dL (70-99) 197 mg/dL (70-99) Vancomycin Level Trough 30.0 mcg/mL (10.0-20.0) Vancomycin Last Dose Date 07/18/18 Vancomycin Last Dose Time 0026 Test 07/19/18 05:40 07/19/18 09:30 07/19/18 16:01 07/19/18 20:13 Sodium Level 145 mmol/L (136-145) Potassium Level 4.1 mmol/L (3.5-5.1) Chloride Level 109 mmol/L (98-107) Carbon Dioxide Level 29 mmol/L (21-32) Anion Gap 7 (6-14) Blood Urea Nitrogen 41 mg/dL (8-26) Creatinine 1.1 mg/dL (0.7-1.3) Estimated GFR (Cockcroft-Gault) 66.8 Glucose Level 210 mg/dL (70-99) Calcium Level 8.3 mg/dL (8.5-10.1) Thyroid Stimulating Hormone (TSH) 3.770 uIU/mL (0.358-3.74) Glucose (Fingerstick) 205 mg/dL (70-99) 141 mg/dL (70-99) 167 mg/dL (70-99) Test 07/20/18 08:42 Glucose (Fingerstick) 158 mg/dL (70-99) Laboratory Tests Test 07/19/18 16:01 07/19/18 20:13 07/20/18 08:42 Glucose (Fingerstick) 141 mg/dL (70-99) 167 mg/dL (70-99) 158 mg/dL (70-99) Medications Active Scripts Medications Dose Route/Sig Max Daily Dose Days Date Category Digoxin 125 Mcg Tablet 125 Mcg PO QHS 07/16/18 Reported Ultra Nancy Plus Capsule (Lactobac/Bifidobac/Glob Pr Con) 1 Each Capsule 1 Each PO BID 07/16/18 Reported Eliquis (Apixaban) 5 Mg Tablet 5 Mg PO BID 07/16/18 Reported Atorvastatin Calcium 20 Mg Tablet 20 Mg PO HS 07/16/18 Reported Tramadol Hcl 50 Mg Tablet 50 Mg PO Q6HRS PRN 07/16/18 Reported [place]-3 ([place]-3 Fatty Acids) 1,000 Mg Capsule 2,000 Mg PO 07/16/18 Reported Amiodarone Hcl 200 Mg Tablet 400 Mg PO BID 07/16/18 Reported Acetaminophen Oral Liquid (Acetaminophen) 650 Mg/20.3 Ml Solution 650 Mg PO PRN Q6HRS 07/16/18 Reported Ferrous Sulfate 220 Mg/5 Ml Elixir 5 Ml PO DAILY 07/16/18 Reported Melatonin 3 Mg Tablet 6 Mg PO PRN QHS 07/16/18 Reported Metoprolol Tartrate 25 Mg Tablet 25 Mg PO BID 07/16/18 Reported Doxazosin Mesylate 4 Mg Tablet 4 Mg PO DAILY 07/16/18 Reported Novolog Flexpen (Insulin Aspart) 100 Unit/1 Ml Insuln.pen 20 Unit SQ TID@0800,1400,2000 07/16/18 Reported Lantus Solostar (Insulin Glargine,Hum.rec.anlog) 100 Unit/1 Ml Insuln.pen 40 Unit SQ QHS 07/16/18 Reported Nystatin 100,000 Unit/1 Ml Oral.susp 5 Ml PO QID 07/16/18 Reported Finasteride 5 Mg Tablet 5 Mg PO QHS 07/16/18 Reported Trazodone Hcl 50 Mg Tablet 50 Mg PO HS 07/16/18 Reported Polyethylene Glycol 3350 255 Gm Powder 34 Gm PO BID 07/16/18 Reported Certa Jordan Liquid (Multivits W-Min/Ferrous Gluc) 9 Mg/15 Ml Liquid 9 Mg PO DAILY 07/16/18 Reported Comments CXR REVIEWED NOT MUCH DIFFERENT LLL INFILTRATE EFFUSION Impression . IMPRESSION: 1. Acute hypoxic respiratory failure secondary to extensive pneumonia. 2. Abnormal CT chest with bilateral consolidation consistent with pneumonia and a small pleural effusion 3. Anemia. 4. Hypotension/Sepsis 5. No significant history of tobacco use. 6. History of prior cerebrovascular accident with dysphagia and chronic PEG tube placement. 7. Large right thigh wounds. <Conclusion> The left ventricular systolic function is normal. The Ejection Fraction is 55-60%. There is normal LV segmental wall motion. Trace to mild mitral regurgitation. Mild tricuspid regurgitation. The PA pressure was estimated at 40 mmHg. There is no evidence of significant pericardial effusion. Plan . SURGERY ON HOLD, FAMILY WISHES TO PROCEED WITH PALLITIVE CARE/ HOSPICE WAITING FOR SON TO ARRIVE PALLIATIVE CARE NOT APPRECIATED DR FIELDS NOTE NOTED BIPAP CONTINUE ANTIBX REPEAT CXR REVIEWED DVT PROPH PEG TUBE FEEDING NPO ECHO REPORT NOTED CCT 30MIN SPOKE WITH AT BEDSIDE LLUVIA TURK MD Jul 20, 2018 09:57
[2018-07-20] MEDS: INSULIN LISPRO 300 UNITS/3 ML INSULN.PEN. SQ SCH (10:35)
[2018-07-20 11:19] VITALS: BP 106/61
--- NOTE | 2018-07-20 13:07 | PDOC ---
SURGICAL PROGRESS NOTE Subjective notes reviewed d/w Pat plans for discharge to [facility] with hospice, no aggressive measures wanted Vital Signs Vital Signs Date Time Temp Pulse Resp B/P (MAP) Pulse Ox O2 Delivery O2 Flow Rate FiO2 07/20/18 11:19 98.1 85 32 106/61 (76) 96 Venturi Mask 2.0 98.1 I&O Intake and Output 07/20/18 07:00 Intake Total 2630 ml Output Total 1310 ml Balance 1320 ml Intake IV Total 350 ml Tube Feeding 2080 ml Other 200 ml Output Urine Total 960 ml Stool Total 350 ml Labs Laboratory Tests Test 07/18/18 13:26 07/18/18 17:00 07/18/18 17:16 07/18/18 19:42 Glucose (Fingerstick) 262 mg/dL (70-99) 202 mg/dL (70-99) 197 mg/dL (70-99) Vancomycin Level Trough 30.0 mcg/mL (10.0-20.0) Vancomycin Last Dose Date 07/18/18 Vancomycin Last Dose Time 0026 Test 07/19/18 05:40 07/19/18 09:30 07/19/18 16:01 07/19/18 20:13 Sodium Level 145 mmol/L (136-145) Potassium Level 4.1 mmol/L (3.5-5.1) Chloride Level 109 mmol/L (98-107) Carbon Dioxide Level 29 mmol/L (21-32) Anion Gap 7 (6-14) Blood Urea Nitrogen 41 mg/dL (8-26) Creatinine 1.1 mg/dL (0.7-1.3) Estimated GFR (Cockcroft-Gault) 66.8 Glucose Level 210 mg/dL (70-99) Calcium Level 8.3 mg/dL (8.5-10.1) Thyroid Stimulating Hormone (TSH) 3.770 uIU/mL (0.358-3.74) Glucose (Fingerstick) 205 mg/dL (70-99) 141 mg/dL (70-99) 167 mg/dL (70-99) Test 07/20/18 08:42 Glucose (Fingerstick) 158 mg/dL (70-99) Laboratory Tests Test 07/19/18 16:01 07/19/18 20:13 07/20/18 08:42 Glucose (Fingerstick) 141 mg/dL (70-99) 167 mg/dL (70-99) 158 mg/dL (70-99) JULIO LEONARD APRN Jul 20, 2018 13:07
--- NOTE | 2018-07-20 13:07 | DISCH ---
DISCHARGE DISCHARGE INFORMATION: CONDITION ON DISCHARGE: Stable CODE STATUS: Code Status: DNR/DNI INTERMEDIATE: SNF STAY <30 DAYS: Yes HOSPICE: HOSPICE: Yes HOSPICE EVAL & TREAT: Yes POST DISCHARGE ORDERS: DIET AFTER DISCHARGE: TREATMENT/EQUIPMENT ORDERS: RESPIRATORY EQUIPMENT NEEDED: Oxygen DISCHARGE MEDICATIONS: Home Meds Reported Medications Digoxin (DIGOXIN) 125 Mcg Tablet, 125 MCG PO QHS, TAB 07/16/18 Lactobac/Bifidobac/Glob Pr Con (ULTRA MICHAELA PLUS CAPSULE) 1 Each Capsule, 1 EACH PO BID, CAP 07/16/18 Apixaban (ELIQUIS) 5 Mg Tablet, 5 MG PO BID, TAB 07/16/18 Atorvastatin Calcium (ATORVASTATIN CALCIUM) 20 Mg Tablet, 20 MG PO HS for FOR CHOLESTEROL, #30 TAB 0 Refills 07/16/18 Tramadol Hcl (TRAMADOL HCL) 50 Mg Tablet, 50 MG PO Q6HRS PRN for PAIN, TAB 07/16/18 [place]-3 Fatty Acids (OMEGA-3) 1,000 Mg Capsule, 2000 MG PO, CAP 07/16/18 Amiodarone Hcl (AMIODARONE HCL) 200 Mg Tablet, 400 MG PO BID, TAB 07/16/18 Acetaminophen (ACETAMINOPHEN ORAL LIQUID ) 650 Mg/20.3 Ml Solution, 650 MG PO PRN Q6HRS, EACH 07/16/18 Ferrous Sulfate (Ferrous Sulfate) 220 Mg/5 Ml Elixir, 5 ML PO DAILY, LIQUID 07/16/18 Melatonin (MELATONIN) 3 Mg Tablet, 6 MG PO PRN QHS, TAB 07/16/18 Metoprolol Tartrate (METOPROLOL TARTRATE) 25 Mg Tablet, 25 MG PO BID for FOR HYPERTENSION, #60 TAB 0 Refills 07/16/18 Doxazosin Mesylate (DOXAZOSIN MESYLATE) 4 Mg Tablet, 4 MG PO DAILY, TAB 07/16/18 Insulin Aspart (NOVOLOG FLEXPEN) 100 Unit/1 Ml Insuln.pen, 20 UNIT SQ TID@0800, 1400,2000, SYR 07/16/18 Insulin Glargine,Hum.rec.anlog (LANTUS SOLOSTAR) 100 Unit/1 Ml Insuln.pen, 40 UNIT SQ QHS, #15 ML 3 Refills 07/16/18 Nystatin (NYSTATIN) 100,000 Unit/1 Ml Oral.susp, 5 ML PO QID, #200 ML 07/16/18 Finasteride (FINASTERIDE) 5 Mg Tablet, 5 MG PO QHS, TAB 07/16/18 Trazodone Hcl (TRAZODONE HCL) 50 Mg Tablet, 50 MG PO HS, TAB 07/16/18 Polyethylene Glycol 3350 (POLYETHYLENE GLYCOL 3350) 255 Gm Powder, 34 GM PO BID , #527 GM 07/16/18 Multivits W-Min/Ferrous Gluc (CERTA RAVINDER LIQUID) 9 Mg/15 Ml Liquid, 9 MG PO DAILY, LIQUID 07/16/18 NICOL LALA MD Jul 20, 2018 13:07
[2018-07-20] MEDS: MORPHINE SULFATE 2 MG/ML VIAL. IV PRN (14:04)
--- NOTE | 2018-07-20 14:10 | DS ---
DATE OF DISCHARGE: 07/20/2018 HOSPITAL COURSE: The patient is a 67-year-old male patient, a resident at [facility], who was seen initially at [facility] Emergency Room with altered mental status, was found to have acute on chronic hypoxic hypercapnic respiratory failure, initially there was plan to intubate him; however, it transpired that he is DNR/DNI, was started on BiPAP and transferred to the ICU of [facility] where he was treated for healthcare-associated pneumonia. He was found to have multiple wounds on the back of his head, both gluteal area and anterior aspect of the right thigh. He was seen in consultation by the Infectious Disease, the bookkeeping clerks supervisor, Wound Care team, has a wound vacuum vacuum-assisted closure device placed to his large wound in the anterior aspect of the right thigh. We did consult the Palliative Care. The family basically agreed to comfort care and so all the planned procedures and x-rays, labs and medications were discontinued, and the plan was for him to be discharged on hospice back to [facility] for end of life care. PHYSICAL EXAMINATION: GENERAL: When I saw him today, he was resting slightly propped up in bed, in no apparent respiratory distress, was pale, but no jaundice, cyanosis, or thyromegaly. No jugular venous distension. No lower limb edema. VITAL SIGNS: His heart rate was 85, blood pressure 106/61, temperature was 98.1, respiratory rate was 32 and oxygen saturation was 96% on 2 liters of oxygen by Venturi mask. HEAD, EYES, EARS, NOSE AND THROAT: Showed normocephalic, atraumatic. NECK: Supple. HEART: Showed normal first and second heart sounds. No gallop, rub or murmur. CHEST: Clear to auscultation. No crepitation or rhonchi. ABDOMEN: Distended, soft with a gastrostomy tube in place. There is no tenderness. No guarding or rigidity. No organomegaly. All hernial orifices intact. Bowel sounds normal. NEUROLOGIC: He was lethargic, but arousable. All cranial nerves are intact. He has right-sided hemiplegia. SKIN: He has multiple wounds on the back of his head, bilateral gluteal decubitus ulcer as well as a large wound on the anterior aspect of the right thigh. INS AND OUTS: His intake was 5560, output was 1079. LABORATORY DATA: Showed his white cell count was 8100, hemoglobin 8, hematocrit 25, MCV 85 and platelet count of 153,000. As of yesterday, his serum sodium 145, potassium 4.1, chloride 109, bicarbonate 29, anion gap of 7, BUN 41, creatinine 1.1, estimated GFR was 66 mL per minute. His glucose was 110 and calcium was 8.3. DISCHARGE MEDICATIONS: He was discharged back to [facility] to continue on his Tylenol 650 mg in 20.3 mL by feeding tube every 6 hours, atorvastatin 20 mg at bedtime, digoxin 125 mcg once a day, ferrous sulfate 325 mg per 5 mL per feeding tube once a day. He is on finasteride 5 mg at bedtime. He is on NovoLog insulin 20 units 3 times a day and Lantus insulin 40 units at bedtime, Lactobacillus acidophilus 1 capsule twice a day, melatonin 6 mg at bedtime, multivitamin with mineral 1 tablet once a day, nystatin 5 mL swish and swallow 4 times a day, omega-3 fatty acids 1000 mg twice a day, polyethylene glycol 17 grams p.o. daily, tramadol 50 mg every 6 hours. He also was discharged on Roxanol 20 mg/mL to take -1 mL, i.e. 5-20 mg p.o. per feeding tube every 2 hours as needed for pain and shortness of air. He is also on Ativan for Intensol 2 mg/mL to take 0.25-1 mL, i.e. 0.5-2 mg every 2 hours as needed for anxiety. FINAL DISCHARGE DIAGNOSES: 1. Acute on chronic hypoxic and hypercapnic respiratory failure. 2. Bilateral lung infiltrate, likely healthcare-associated pneumonia. 3. Left middle cerebral artery territory infarct with right-sided hemiplegia, aphasia and dysphagia. 4. History of right thigh abscess, status post incision and drainage. The patient has a large wound covered with wound vacuum assisted closure device. He has also wounds in his gluteal area. 5. Type 2 diabetes that seems to be much better controlled. 6. Anemia of chronic kidney disease. 7. Morbid obesity. 8. Hyperlipidemia. NICOL LALA MD DR: HARJINDER/roni JOB#: [id number] / [id number]
--- NOTE | 2018-07-20 16:05 | PDOC ---
PROGRESS NOTES Assessment Assessment Metabolic encephalopathy. Respiratory failure. Pneumonia. Pulmonary effusion. Mediastinal lymphadenopathy. AFib. CHF. DM. HTN. Right thigh abscess. Peripheral neuropathy. Old gun shunt wounds likely. Aphasia, chronic. 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 RECOMMENDATIONS/PLAN:. Palliative care per family's decision. Discussed with her at bedside on 07/20/18. HISTORY OF THE PRESENT ILLNESS: This is a 69-year-old male patient presented was brought to [facility] from outside facility due to altered mental status with the respiratory failure. No focalized sensory or motor deficits reported. PAST MEDICAL HISTORY: Atrial fibrillation Methicillin-resistant Staphylococcus aureus infection. Acute systolic congestive heart failure. Acute respiratory failure. Cutaneous abscess of the right thigh, status post incision and drainage. Acute kidney failure. Anemia of chronic disease. Diabetes with hyperglycemia. Obesity Hyperlipidemia. Chronic hyponatremia Hypertension. Muscle weakness, difficulty walking. 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 PAST SURGICAL HISTORY: Percutaneous endoscopic gastrostomy tube placement as well as incision and drainage of the abscess in his right thigh. The patient is aphasic and does not give any useful information. ALLERGIES: METFORMIN AND PIOGLITAZONE. FAMILY HISTORY: Unobtainable. SOCIAL HISTORY: [place] [facility] [place] [facility] OF SYSTEMS: Unobtainable. REVIEW OF SYSTEMS: Refer to PMH and PSH. PHYSICAL EXAMINATION: General appearance is in subacute distress. HEENT: Normocephalic and nontraumatic. Eyes, nose, ears, and throat are unremarkable. Neck is supple. No lymphadenopathy. No crepitus. Cardiovascular: S1, S2, regular rate and rhythm. Pulmonary: Breathing sounds coarse and decreased to auscultation bilaterally, especially in right side. Abdomen: Bowel sounds are positive. Extremities: No rash, lesions, or edema. No restriction of range of motion NEUROLOGICAL EXAMINATION: Lethargic. Not oriented to time, place and person. PERRL. EOMI. CN: no acute focal findings. Muscle tone: fluctuated. Right side increased from old CVA. Muscle strength: 2-3 UE, 1+ LE. DTR: 1+UE, 0 at knee. Plantar reflex: Neutral response bilaterally Gait: not able to walk this time. Sensory exam: Withdrawal response to stimuli. Not able to access cerebellar signs. F-T-N test not performed due to not follow commands. Objective Objective Vital Signs Date Time Temp Pulse Resp B/P (MAP) Pulse Ox O2 Delivery O2 Flow Rate FiO2 07/20/18 14:04 96 2.0 07/20/18 11:19 98.1 85 32 106/61 (76) Venturi Mask 98.1 Intake and Output 07/20/18 07:00 Intake Total 2630 ml Output Total 1310 ml Balance 1320 ml Intake IV Total 350 ml Tube Feeding 2080 ml Other 200 ml Output Urine Total 960 ml Stool Total 350 ml Vitals Signs Vitals VS - Last 72 Hours, by Label Date Time Temp Pulse Resp B/P (MAP) Pulse Ox O2 Delivery O2 Flow Rate FiO2 07/20/18 14:04 96 2.0 07/20/18 11:19 98.1 85 32 106/61 (76) 96 Venturi Mask 2.0 98.1 07/20/18 10:34 98 BiPAP/CPAP 07/20/18 08:43 84 137/70 07/20/18 08:43 84 137/70 07/20/18 08:00 Bi-pap 2.0 07/20/18 07:42 99.1 84 22 137/70 (92) 99 BiPAP/CPAP 2.0 99.1 07/20/18 07:09 98 BiPAP/CPAP 07/20/18 05:03 98 BiPAP/CPAP 07/20/18 03:24 98.1 78 18 126/84 (98) 98 BiPAP/CPAP 98.1 07/20/18 03:10 96 BiPAP/CPAP 07/20/18 01:45 BiPAP/CPAP 07/19/18 23:18 BiPAP/CPAP 07/19/18 23:14 97.9 79 18 127/64 (85) 100 Room Air 97.9 07/19/18 22:36 BiPAP/CPAP 07/19/18 22:06 BiPAP/CPAP 07/19/18 20:40 97.9 81 20 124/79 (94) 100 BiPAP/CPAP 2.0 97.9 07/19/18 20:07 98 BiPAP/CPAP 07/19/18 20:00 Bi-pap 07/19/18 19:30 88 24 105/50 (68) 100 BiPAP/CPAP 07/19/18 16:37 98 BiPAP/CPAP 07/19/18 16:00 89 24 95/55 (68) 97 BiPAP/CPAP 07/19/18 14:44 98 BiPAP/CPAP 07/19/18 14:00 83 24 99/56 (70) 97 BiPAP/CPAP 07/19/18 13:45 95 BiPAP/CPAP 07/19/18 13:00 85 24 79/39 (52) 97 BiPAP/CPAP 07/19/18 12:00 Bi-pap 07/19/18 12:00 98.2 87 24 119/53 (75) 97 BiPAP/CPAP 98.2 07/19/18 11:36 86 Nasal Cannula 2.0 07/19/18 11:00 87 24 119/53 (75) 94 Nasal Cannula 3.0 07/19/18 10:00 86 22 89/60 (70) 97 BiPAP/CPAP 07/19/18 09:27 100 140/61 07/19/18 09:00 90 22 133/52 (79) 97 BiPAP/CPAP 07/19/18 08:57 97 BiPAP/CPAP 07/19/18 08:00 Bi-pap 07/19/18 08:00 97 22 147/61 (89) 96 BiPAP/CPAP 07/19/18 07:55 99 BiPAP/CPAP 07/19/18 07:00 97.1 100 22 140/61 (87) 97 BiPAP/CPAP 97.1 Laboratory Laboratory Laboratory Tests Test 07/19/18 20:13 07/20/18 08:42 Glucose (Fingerstick) 167 mg/dL (70-99) 158 mg/dL (70-99) Medication Medications Current Medications Influenza Virus Vaccine (Afluria Trivalent 9560-2177 Syringe) 0.5 ml ONCE ONCE VAX IM Last administered on 07/20/18at 14:04; Start 07/20/18 at 12:00; Stop 07/20/18 at 12:01; Status DC Comment Review of Relevant I have reviewed the following items kirsten (where applicable) has been applied. SHYANN OLIVAREZ MD Jul 20, 2018 16:05
== END 2018-07-20 17:43 | disposition hospice, home (50) | DRG 871 ==
LOC: 1 WEST ICU 13:22 → 6 SOUTH 07-19 20:49
PROVIDERS: ADMIT Internal Medicine; ATTEND Internal Medicine
PROC: 5A09357 Assistance with Respiratory Ventilation, Less than 24 Consecutive Hours, Continuous Positive Airway Pressure (ICD-10-PCS; principal; 2018-07-16)
PROC: 02HV33Z Insertion of Infusion Device into Superior Vena Cava, Percutaneous Approach (ICD-10-PCS; 2018-07-16)
PROC: 5A09357 Assistance with Respiratory Ventilation, Less than 24 Consecutive Hours, Continuous Positive Airway Pressure (ICD-10-PCS; 2018-07-18)
PROC: 5A09457 Assistance with Respiratory Ventilation, 24-96 Consecutive Hours, Continuous Positive Airway Pressure (ICD-10-PCS; 2018-07-19)
DX: A41.9 Sepsis, unspecified organism (principal); G93.41 Metabolic encephalopathy; J18.9 Pneumonia, unspecified organism; J96.21 Acute and chronic respiratory failure with hypoxia; J96.22 Acute and chronic respiratory failure with hypercapnia; G81.91 Hemiplegia, unspecified affecting right dominant side; R47.01 Aphasia; I13.0 Hypertensive heart and chronic kidney disease with heart failure and stage 1 through stage 4 chronic kidney disease, or unspecified chronic kidney disease; I50.42 Chronic combined systolic (congestive) and diastolic (congestive) heart failure; L02.415 Cutaneous abscess of right lower limb; J44.0 Chronic obstructive pulmonary disease with (acute) lower respiratory infection; G82.20 Paraplegia, unspecified; M19.90 Unspecified osteoarthritis, unspecified site; R13.10 Dysphagia, unspecified; E66.01 Morbid (severe) obesity due to excess calories; Z66 Do not resuscitate; E78.5 Hyperlipidemia, unspecified; R59.0 Localized enlarged lymph nodes; F03.90 Unspecified dementia, unspecified severity, without behavioral disturbance, psychotic disturbance, mood disturbance, and anxiety; L89.159 Pressure ulcer of sacral region, unspecified stage; N18.9 Chronic kidney disease, unspecified; N40.0 Benign prostatic hyperplasia without lower urinary tract symptoms; E11.22 Type 2 diabetes mellitus with diabetic chronic kidney disease; I48.2 Chronic atrial fibrillation; Y95 Nosocomial condition; Z51.5 Encounter for palliative care; D63.1 Anemia in chronic kidney disease; I07.1 Rheumatic tricuspid insufficiency; L89.309 Pressure ulcer of unspecified buttock, unspecified stage; Z68.35 Body mass index [BMI] 35.0-35.9, adult; Z88.8 Allergy status to other drugs, medicaments and biological substances; Z93.1 Gastrostomy status; Z79.01 Long term (current) use of anticoagulants; Z86.14 Personal history of Methicillin resistant Staphylococcus aureus infection; Z86.73 Personal history of transient ischemic attack (TIA), and cerebral infarction without residual deficits
CPT/HCPCS: 36415; 36569; 36600; 70450; 71045; 71250; 80048; 80053; 80162; 80202; 82550; 82607; 82805; 82962; 83880; 84443; 85007; 85025; 85027; 85610; 87641; 90471; 90756; 93005; 93306; 94640; 94660; 94760; J1815; J1940; J2270; J2543; J3370; J7040; J7613; J7620; P9041; P9045; Q2035